=== PATIENT | male | born 1945 | race Caucasian/White ===

== ENCOUNTER 2021-06-22 11:12 | Emergency (ER) | payer MEDICARE ==
[2021-06-22 11:14] VITALS: BP 200/82
[2021-06-22] MEDS ORDERED: ASPI325T43 PO (16:29)
[2021-06-22] MEDS ORDERED: SIMV20TA22 (16:40)
[2021-06-22] MEDS ORDERED: LABE20TAB (16:40)
== END 2021-06-22 18:02 | disposition home or self-care (01) ==
LOC: M ED 11:12
DX: I73.89 Other specified peripheral vascular diseases (principal); I48.91 Unspecified atrial fibrillation; I10 Essential (primary) hypertension; E78.5 Hyperlipidemia, unspecified; K21.9 Gastro-esophageal reflux disease without esophagitis

== ENCOUNTER → 2021-06-24 | Outpatient (CLI) | payer MEDICARE ==
[~2021-06-24] MED LIST: ASPI325T43 PO; ISOVUE-370 76% 100ML VIAL As Ordered ONE; LABE20TAB; SIMV20TA22
== END ==
LOC: M RAD 09:13 → EDUNIT# 09:30
PROVIDERS: ATTEND Internal Medicine Cardiovascular Disease
DX: I70.213 Atherosclerosis of native arteries of extremities with intermittent claudication, bilateral legs (principal); M25.571 Pain in right ankle and joints of right foot; M25.572 Pain in left ankle and joints of left foot
CPT/HCPCS: 75635; Q9967

== ENCOUNTER 2021-08-24 12:49 | Emergency (ER) | payer MEDICARE ==
[~2021-08-24] VITALS: Ht 180.3 cm; Wt 97.7 kg
[~2021-08-24 12:49] MED LIST changes: -ISOVUE-370 76% 100ML VIAL As Ordered ONE; -SIMV20TA22; +SIMV20TA22 PO
[2021-08-24 13:53] LABS: BASO % 0.3 % (0.0-1.0); EOS % 0.1 % (0.0-3.0); HEMATOCRIT 45.3 % (42.0-52.0); HEMOGLOBIN 15.5 g/dl (13.5-17.5); LYMPH # 1.2 10^3/uL (1.5-5.0); LYMPH % 8.2 % (24.0-44.0); MEAN CORPUSCULAR HEMOGLOBIN 30.9 pg (27.0-33.0); MEAN CORPUSCULAR HGB CONC 34.2 g/dl (32.0-36.5); MEAN CORPUSCULAR VOLUME 90.4 fl (80.0-96.0); MONO # 0.9 10^3/uL (0.0-0.8); MONO % 6.6 % (2.0-8.0); NEUTROPHILS % 84.2 % (36.0-66.0); PLATELET COUNT, AUTOMATED 289 10^3/uL (150-450); RED BLOOD COUNT 5.01 10^6/uL (4.30-6.10); WHITE BLOOD COUNT 14.2 10^3/uL (4.0-10.0)
[2021-08-24 14:29] LABS: ALBUMIN 3.7 GM/DL (3.2-5.2); ALT/SGPT 83 U/L (12-78); BILIRUBIN,DIRECT 0.3 MG/DL (0.0-0.2); BILIRUBIN,TOTAL 1.1 MG/DL (0.2-1.0); BLOOD UREA NITROGEN 32 MG/DL (7-18); CALCIUM LEVEL 9.5 MG/DL (8.8-10.2); CARBON DIOXIDE LEVEL 28 MEQ/L (21-32); CHLORIDE LEVEL 104 MEQ/L (98-107); CREATININE FOR GFR 1.15 MG/DL (0.70-1.30); GLOMERULAR FILTRATION RATE > 60.0 (>42); GLUCOSE, FASTING 98 MG/DL (70-100); POTASSIUM SERUM 4.3 MEQ/L (3.5-5.1); SODIUM LEVEL 139 MEQ/L (136-145); TOTAL PROTEIN 6.6 GM/DL (6.4-8.2)
[2021-08-24] MEDS: NS 1,000 ML IV SCH ×2 (14:29→21:05)
[2021-08-24] MEDS ORDERED: ISOVUE-370 76% 100ML VIAL As Ordered ONE (14:56)
[2021-08-24] MEDS ORDERED: NITROGLYCERIN 0.4 MG SUBL TABLET SL PRN (17:30)
[2021-08-24] MEDS ORDERED: ASPIRIN 81 MG CHEW TABLET PO ONE (17:30)
[2021-08-24] MEDS ORDERED: NAPR220C14 PO (17:36)
[2021-08-24] MEDS ORDERED: VALS1TAB67 PO (17:36)
[2021-08-24] MEDS ORDERED: HOME MED LIST COMPLETE! XX SCH (17:40)
[2021-08-24 18:26] LABS: RSV AMPLIFICATION NEGATIVE (NEGATIVE)
[2021-08-24] MEDS ORDERED: MAALOX 30 ML SUSP *UDC PO ONE (20:25)
[2021-08-24] MEDS ORDERED: GI COCKTAIL 50ML BTL(HYOSCYAMINE/MAALOX/LIDOCAINE VISCOUS)(1:3:1) PO ONE (21:40)
[2021-08-24 23:45] VITALS: BP 169/78
[2021-08-25] MEDS ORDERED: NORV5TAB PO (00:58)
[2021-08-25] MEDS ORDERED: OMEP40CA4 PO (00:58)
== END 2021-08-25 01:18 | disposition home or self-care (01) ==
LOC: M ED 12:49
DX: K21.9 Gastro-esophageal reflux disease without esophagitis (principal); R07.9 Chest pain, unspecified; I70.0 Atherosclerosis of aorta; R94.31 Abnormal electrocardiogram [ECG] [EKG]; R93.2 Abnormal findings on diagnostic imaging of liver and biliary tract; E78.5 Hyperlipidemia, unspecified; I10 Essential (primary) hypertension
CPT/HCPCS: 71045; 71275; 74175; 80048; 80076; 84484; 85025; 87631; 93005; 93306; 94760; 99285; Q9967

== ENCOUNTER 2021-09-09 17:37 | Inpatient (IN) | payer MEDICARE ==
[~2021-09-09] VITALS: Ht 180.3 cm; Wt 90.5 kg
[~2021-09-09 17:37] MED LIST changes: +NAPR220C14 PO; +NORV5TAB PO; +OMEP40CA4 PO; +VALS1TAB67 PO
[2021-09-09] MEDS ORDERED: GABA-1171 (17:57)
[2021-09-09] MEDS ORDERED: PANT40TA29 (17:57)
[2021-09-09] MEDS ORDERED: NS 500 ML IV ONE (18:10)
[2021-09-09 18:24] LABS: VENOUS BASE EXCESS -3.1 (-2.0-2.0); VENOUS HCO3 21.7 MEQ/L (23.0-27.0); VENOUS O2 SATURATION 93.9 % (60.0-80.0); VENOUS PARTIAL PRESSURE CO2 37.6 mmHg (38.0-50.0); VENOUS PARTIAL PRESSURE O2 76.8 mmHg (30.0-50.0); VENOUS PH 7.379 UNITS (7.330-7.430); VENOUS STANDARD HCO3 21.8 MEQ/L; VENOUS TOTAL CO2 22.8 MEQ/L (24.0-28.0)
[2021-09-09 18:33] LABS: BASO % 0.4 % (0.0-1.0); EOS # 0.1 10^3/uL (0.0-0.5); EOS % 0.9 % (0.0-3.0); HEMATOCRIT 24.9 % (42.0-52.0); LYMPH # 1.3 10^3/uL (1.5-5.0); LYMPH % 12.9 % (24.0-44.0); MEAN CORPUSCULAR HEMOGLOBIN 30.9 pg (27.0-33.0); MEAN CORPUSCULAR HGB CONC 32.1 g/dl (32.0-36.5); MEAN CORPUSCULAR VOLUME 96.1 fl (80.0-96.0); MONO # 0.9 10^3/uL (0.0-0.8); MONO % 8.7 % (2.0-8.0); NEUTROPHILS % 76.4 % (36.0-66.0); PLATELET COUNT, AUTOMATED 516 10^3/uL (150-450); RED BLOOD COUNT 2.59 10^6/uL (4.30-6.10); WHITE BLOOD COUNT 10.4 10^3/uL (4.0-10.0)
[2021-09-09 18:56] LABS: OSMOLALITY SERUM 288 MOSM/KG (280-301)
[2021-09-09 19:06] LABS: CK-MB VALUE MASS 3.4 NG/ML (<3.6); MB/CK RELATIVE INDEX 2.64 (< OR =4)
[2021-09-09 19:12] LABS: ALBUMIN 2.7 GM/DL (3.2-5.2); ALT/SGPT 45 U/L (12-78); BILIRUBIN,DIRECT < 0.1 MG/DL (0.0-0.2); BILIRUBIN,TOTAL 0.6 MG/DL (0.2-1.0); BLOOD UREA NITROGEN 10 MG/DL (7-18); CALCIUM LEVEL 8.5 MG/DL (8.8-10.2); CARBON DIOXIDE LEVEL 27 MEQ/L (21-32); CHLORIDE LEVEL 109 MEQ/L (98-107); CREATININE FOR GFR 0.85 MG/DL (0.70-1.30); ETHYL ALCOHOL (ETHANOL) < 0.003 % (0.000-0.010); GLOMERULAR FILTRATION RATE > 60.0 (>42); GLUCOSE, FASTING 75 MG/DL (70-100); POTASSIUM SERUM 5.2 MEQ/L (3.5-5.1); SODIUM LEVEL 139 MEQ/L (136-145); TOTAL PROTEIN 5.7 GM/DL (6.4-8.2)
[2021-09-09 19:21] LABS: RSV AMPLIFICATION NEGATIVE (NEGATIVE)
[2021-09-09] MEDS ORDERED: LIDOCAINE 2% 5ML JELLY UROJET TOP ONE (20:25)
[2021-09-09 21:20] LABS: AMPHETAMINES LEVEL URINE NEGATIVE (NEGATIVE); BARBITURATES URINE NEGATIVE (NEGATIVE); BENZODIAZEPINES URINE NEGATIVE (NEGATIVE); CANNABINOIDS URINE NEGATIVE (NEGATIVE); COCAINE METABOLITE URINE NEGATIVE (NEGATIVE); METHADONE URINE NEGATIVE (NEGATIVE); OPIATES URINE NEGATIVE (NEGATIVE); PHENCYCLIDINE URINE NEGATIVE (NEGATIVE)
[2021-09-09] MEDS ORDERED: DEXTROSE 50% 50 ML SYRINGE IV PRN (21:45)
[2021-09-09] MEDS ORDERED: GLUCAGON INJ 1MG VIAL SC PRN (21:45)
[2021-09-09] MEDS ORDERED: GLUCOSE 4GM CHEW TABLET PO PRN (21:45)
[2021-09-09] MEDS ORDERED: PANT40TA29 PO (22:44)
[2021-09-09] MEDS ORDERED: NAPR-1010 PO (22:44)
[2021-09-09] MEDS ORDERED: GABA-1171 PO (22:44)
[2021-09-09] MEDS ORDERED: AMLO1TAB24 PO (22:44)
[2021-09-09 22:45] LABS: FERRITIN 178 NG/ML (26-388); FOLATE 22.2 NG/ML; IRON (FE) 50 UG/DL (65-175); PERCENT SATURATION 21.3 % (19.7-50.0); TOTAL IRON BINDING CAPACITY 235 UG/DL (250-450); VITAMIN B12 LEVEL 630 PG/ML
[2021-09-09] MEDS ORDERED: HOME MED LIST COMPLETE! XX SCH (22:50)
[2021-09-10] MEDS ORDERED: SIMVASTATIN 20 MG TAB PO SCH (09:00)
[2021-09-10] MEDS: FERROUS SULFATE 300MG/5ML UDC LIQUID PO SCH (09:00)
[2021-09-10] MEDS ORDERED: VALSARTAN 80 MG TAB (DIOVAN) PO SCH (09:00)
[2021-09-10] MEDS ORDERED: amLODIPine 5 MG TAB PO SCH (09:00)
[2021-09-10] MEDS: PANTOPRAZOLE 40MG TAB (PROTONIX) PO SCH ×2 (11:17→20:05)
[2021-09-10] MEDS ORDERED: ASPIRIN 81MG ENTERIC TABLET PO ONE (11:45)
[2021-09-10] MEDS ORDERED: ROSUVASTATIN 10 MG TAB (CRESTOR) PO ONE (11:45)
[2021-09-10 13:00] LABS: CHOLESTEROL RISK RATIO 3.666 (<5)
[2021-09-10 13:03] LABS: D-DIMER QUANT 3903.2 ng/ml (<500)
[2021-09-10] MEDS: SUCRALFATE 1 GM TAB PO SCH ×3 (13:37→20:05)
[2021-09-10] MEDS: ENOXAPARIN 40MG/0.4ML SYRINGE (J1650 PER 10MG) SC SCH (17:23)
[2021-09-10 17:51] VITALS: BP 127/56
[2021-09-10 18:22] VITALS: O2SAT 99
[2021-09-10 21:45] VITALS: BP 138/65
[2021-09-10 22:39] VITALS: O2SAT 93
[2021-09-11 02:00] VITALS: BP 112/76
[2021-09-11 06:34] VITALS: BP 144/82
[2021-09-11 06:37] LABS: ALBUMIN 2.4 GM/DL (3.2-5.2); ALT/SGPT 32 U/L (12-78); BILIRUBIN,DIRECT 0.2 MG/DL (0.0-0.2); BILIRUBIN,TOTAL 0.5 MG/DL (0.2-1.0); TOTAL PROTEIN 5.2 GM/DL (6.4-8.2)
[2021-09-11] MEDS ORDERED: NS 1,000 ML IV ONE (08:30)
[2021-09-11] MEDS: ENOXAPARIN 40MG/0.4ML SYRINGE (J1650 PER 10MG) SC SCH (08:51)
[2021-09-11] MEDS: FERROUS SULFATE 300MG/5ML UDC LIQUID PO SCH (08:52)
[2021-09-11] MEDS: ASPIRIN 81MG ENTERIC TABLET PO SCH (08:52)
[2021-09-11] MEDS: PANTOPRAZOLE 40MG TAB (PROTONIX) PO SCH ×2 (08:53→20:15)
[2021-09-11] MEDS: SUCRALFATE 1 GM TAB PO SCH ×4 (08:53→20:15)
[2021-09-11] MEDS: ROSUVASTATIN 10 MG TAB (CRESTOR) PO SCH (08:53)
[2021-09-11] MEDS ORDERED: FLUBLOK(EGG FREE)(QUAD)INFLUENZA VACC 0.5ML SYRINGE 18YRS & OLDER IM ONE (09:00)
[2021-09-11 09:05] LABS: HEMATOCRIT 27.8 % (42.0-52.0); HEMOGLOBIN 8.9 g/dl (13.5-17.5)
[2021-09-11 09:15] LABS: BLOOD UREA NITROGEN 6 MG/DL (7-18); CALCIUM LEVEL 8.7 MG/DL (8.8-10.2); CARBON DIOXIDE LEVEL 25 MEQ/L (21-32); CHLORIDE LEVEL 114 MEQ/L (98-107); CREATININE FOR GFR 0.62 MG/DL (0.70-1.30); GLOMERULAR FILTRATION RATE > 60.0 (>42); GLUCOSE, FASTING 89 MG/DL (70-100); POTASSIUM SERUM 3.6 MEQ/L (3.5-5.1); SODIUM LEVEL 145 MEQ/L (136-145)
[2021-09-11 10:00] VITALS: BP 156/52
[2021-09-11 15:10] VITALS: BP 164/60
[2021-09-11 18:00] VITALS: BP 163/61
[2021-09-11 20:13] VITALS: BP 141/66
[2021-09-12 00:05] VITALS: BP 137/86
[2021-09-12] MEDS: RAMELTEON 8 MG TAB (ROZEREM) PO PRN ×2 (00:33→23:44)
[2021-09-12] MEDS: ACETAMINOPHEN TAB 650MG DOSE (2X325MG) PO PRN (00:33)
[2021-09-12 06:08] VITALS: BP 147/86
[2021-09-12] MEDS ORDERED: ASPI-551 PO (08:20)
[2021-09-12] MEDS ORDERED: CRES10TA PO (08:20)
[2021-09-12] MEDS ORDERED: SUCR1TA PO (08:20)
[2021-09-12] MEDS: PANTOPRAZOLE 40MG TAB (PROTONIX) PO SCH ×2 (08:33→20:27)
[2021-09-12] MEDS: ROSUVASTATIN 10 MG TAB (CRESTOR) PO SCH (08:33)
[2021-09-12] MEDS: ASPIRIN 81MG ENTERIC TABLET PO SCH (08:33)
[2021-09-12] MEDS: SUCRALFATE 1 GM TAB PO SCH ×4 (08:33→20:27)
[2021-09-12] MEDS: FERROUS SULFATE 300MG/5ML UDC LIQUID PO SCH (08:33)
[2021-09-12] MEDS: ENOXAPARIN 40MG/0.4ML SYRINGE (J1650 PER 10MG) SC SCH (08:34)
[2021-09-12] MEDS: amLODIPine 5 MG TAB PO SCH (08:35)
[2021-09-12] MEDS ORDERED: CLOPIDOGREL 75 MG TAB PO SCH (09:00)
[2021-09-12] MEDS ORDERED: MOM 30ML SUSPENSION UDC PO PRN (09:05)
[2021-09-12] MEDS ORDERED: MOM 30ML SUSPENSION UDC PO ONE (09:05)
[2021-09-12] MEDS: SENOKOT S TAB PO SCH ×2 (09:20→20:27)
[2021-09-12] MEDS ORDERED: PLAV1TAB2 PO (10:43)
[2021-09-12 12:36] LABS: DRVV SCREEN 44.8 SEC
[2021-09-12 13:09] LABS: PTT LUPUS TYPE ANTICOAG SCREEN 1.2 (0-1.2)
[2021-09-12 13:16] LABS: DRVV CONFIRM 40.5 SEC; LUPUS CONFIRM RATIO 1.1
[2021-09-12 13:18] LABS: NORMALIZED RATIO 1.09 (0.00-1.20)
[2021-09-12 14:00] VITALS: BP 123/41
[2021-09-12 19:04] VITALS: BP 122/61
[2021-09-12 21:47] VITALS: BP 140/54
[2021-09-12 22:04] VITALS: BP 140/54
[2021-09-13] VITALS (11 sets, daily range): BP systolic 128–158; BP diastolic 48–65
[2021-09-13 07:43] LABS: HEMATOCRIT 22.8 % (42.0-52.0); HEMOGLOBIN 7.2 g/dl (13.5-17.5)
[2021-09-13] MEDS ORDERED: lisinopriL 5 MG TAB PO SCH (09:00)
[2021-09-13 09:33] LABS: PERCENT SATURATION 14.3 % (19.7-50.0)
[2021-09-13] MEDS: SENOKOT S TAB PO SCH ×2 (09:36→20:03)
[2021-09-13] MEDS: FERROUS SULFATE 300MG/5ML UDC LIQUID PO SCH (09:36)
[2021-09-13] MEDS: ASPIRIN 81MG ENTERIC TABLET PO SCH (09:36)
[2021-09-13] MEDS: SUCRALFATE 1 GM TAB PO SCH ×4 (09:36→20:02)
[2021-09-13] MEDS: PANTOPRAZOLE 40MG TAB (PROTONIX) PO SCH ×2 (09:37→20:02)
[2021-09-13] MEDS: amLODIPine 5 MG TAB PO SCH (09:38)
[2021-09-13] MEDS: ROSUVASTATIN 10 MG TAB (CRESTOR) PO SCH (09:38)
[2021-09-13 10:51] LABS: HEMOGLOBIN 7.5 g/dl (13.5-17.5)
[2021-09-13] MEDS ORDERED: amLODIPine 5 MG TAB PO ONE (11:15)
[2021-09-13] MEDS: ACETAMINOPHEN TAB 650MG DOSE (2X325MG) PO PRN ×2 (12:18→20:02)
[2021-09-13] MEDS: ASCORBIC ACID 500 MG TAB PO SCH (12:18)
[2021-09-13] MEDS: RAMELTEON 8 MG TAB (ROZEREM) PO PRN (20:02)
[2021-09-14 05:20] VITALS: BP 140/61
[2021-09-14 07:04] LABS: HEMATOCRIT 29.4 % (42.0-52.0)
[2021-09-14 07:05] LABS: HEMOGLOBIN 9.6 g/dl (13.5-17.5)
[2021-09-14 07:16] LABS: BLOOD UREA NITROGEN 8 MG/DL (7-18); CALCIUM LEVEL 8.6 MG/DL (8.8-10.2); CARBON DIOXIDE LEVEL 26 MEQ/L (21-32); CHLORIDE LEVEL 112 MEQ/L (98-107); CREATININE FOR GFR 0.59 MG/DL (0.70-1.30); GLOMERULAR FILTRATION RATE > 60.0 (>42); GLUCOSE, FASTING 77 MG/DL (70-100); SODIUM LEVEL 145 MEQ/L (136-145)
[2021-09-14] MEDS: SENOKOT S TAB PO SCH ×2 (08:27→20:03)
[2021-09-14] MEDS: ROSUVASTATIN 10 MG TAB (CRESTOR) PO SCH (08:28)
[2021-09-14] MEDS: PANTOPRAZOLE 40MG TAB (PROTONIX) PO SCH ×2 (08:28→20:02)
[2021-09-14] MEDS: SUCRALFATE 1 GM TAB PO SCH ×4 (08:28→20:03)
[2021-09-14] MEDS: ASPIRIN 81MG ENTERIC TABLET PO SCH (08:28)
[2021-09-14] MEDS: FERROUS SULFATE 300MG/5ML UDC LIQUID PO SCH (08:28)
[2021-09-14] MEDS: ACETAMINOPHEN TAB 650MG DOSE (2X325MG) PO PRN ×2 (08:28→20:07)
[2021-09-14] MEDS: ASCORBIC ACID 500 MG TAB PO SCH (08:28)
[2021-09-14] MEDS: RAMELTEON 8 MG TAB (ROZEREM) PO PRN (20:03)
[2021-09-15 06:00] VITALS: BP 148/66
[2021-09-15 06:52] LABS: HEMATOCRIT 32.9 % (42.0-52.0); HEMOGLOBIN 10.3 g/dl (13.5-17.5)
[2021-09-15] MEDS: SENOKOT S TAB PO SCH ×2 (08:56→20:28)
[2021-09-15] MEDS: FERROUS SULFATE 300MG/5ML UDC LIQUID PO SCH (08:56)
[2021-09-15] MEDS: ASCORBIC ACID 500 MG TAB PO SCH (08:56)
[2021-09-15] MEDS: ASPIRIN 81MG ENTERIC TABLET PO SCH (08:56)
[2021-09-15] MEDS: SUCRALFATE 1 GM TAB PO SCH ×4 (08:56→20:29)
[2021-09-15] MEDS: ROSUVASTATIN 10 MG TAB (CRESTOR) PO SCH (08:57)
[2021-09-15] MEDS: PANTOPRAZOLE 40MG TAB (PROTONIX) PO SCH ×2 (08:57→20:29)
[2021-09-15] MEDS: ACETAMINOPHEN TAB 650MG DOSE (2X325MG) PO PRN ×2 (08:57→20:29)
[2021-09-15] MEDS: RAMELTEON 8 MG TAB (ROZEREM) PO PRN (20:28)
[2021-09-16 05:54] VITALS: BP_SYST 143; BP_SYST 157; BP_DIAS 71; BP_DIAS 72
[2021-09-16] MEDS: SUCRALFATE 1 GM TAB PO SCH ×4 (08:12→21:33)
[2021-09-16] MEDS: ROSUVASTATIN 10 MG TAB (CRESTOR) PO SCH (08:12)
[2021-09-16] MEDS: FERROUS SULFATE 300MG/5ML UDC LIQUID PO SCH (08:12)
[2021-09-16] MEDS: ASPIRIN 81MG ENTERIC TABLET PO SCH (08:12)
[2021-09-16] MEDS: PANTOPRAZOLE 40MG TAB (PROTONIX) PO SCH ×2 (08:12→21:33)
[2021-09-16] MEDS: SENOKOT S TAB PO SCH ×2 (08:12→21:33)
[2021-09-16] MEDS: ASCORBIC ACID 500 MG TAB PO SCH (08:12)
[2021-09-16] MEDS: RAMELTEON 8 MG TAB (ROZEREM) PO PRN (21:33)
[2021-09-16] MEDS: ACETAMINOPHEN TAB 650MG DOSE (2X325MG) PO PRN (21:34)
[2021-09-17] MEDS: LIDOCAINE 5% (LIDODERM) PATCH TD PRN ×2 (01:38→20:56)
[2021-09-17] MEDS: ACETAMINOPHEN TAB 650MG DOSE (2X325MG) PO PRN ×2 (01:39→20:56)
[2021-09-17 05:35] VITALS: BP 120/56
[2021-09-17 06:09] LABS: HEMOGLOBIN 9.5 g/dl (13.5-17.5)
[2021-09-17] MEDS: FERROUS SULFATE 300MG/5ML UDC LIQUID PO SCH (09:17)
[2021-09-17] MEDS: SUCRALFATE 1 GM TAB PO SCH ×4 (09:17→20:55)
[2021-09-17] MEDS: ASPIRIN 81MG ENTERIC TABLET PO SCH (09:17)
[2021-09-17] MEDS: PANTOPRAZOLE 40MG TAB (PROTONIX) PO SCH ×2 (09:17→20:55)
[2021-09-17] MEDS: SENOKOT S TAB PO SCH ×2 (09:17→20:55)
[2021-09-17] MEDS: ASCORBIC ACID 500 MG TAB PO SCH (09:17)
[2021-09-17] MEDS: ROSUVASTATIN 10 MG TAB (CRESTOR) PO SCH (09:18)
[2021-09-17] MEDS: **NOTE PATIENT COMMENT** MISC XX SCH ×2 (09:23→20:48)
[2021-09-17] MEDS: RAMELTEON 8 MG TAB (ROZEREM) PO PRN (20:56)
[2021-09-18 06:00] VITALS: BP 111/50
[2021-09-18] MEDS: SENOKOT S TAB PO SCH ×2 (08:06→22:20)
[2021-09-18] MEDS: ASPIRIN 81MG ENTERIC TABLET PO SCH (08:06)
[2021-09-18] MEDS: ASCORBIC ACID 500 MG TAB PO SCH (08:06)
[2021-09-18] MEDS: ROSUVASTATIN 10 MG TAB (CRESTOR) PO SCH (08:06)
[2021-09-18] MEDS: SUCRALFATE 1 GM TAB PO SCH ×4 (08:06→22:20)
[2021-09-18] MEDS: FERROUS SULFATE 300MG/5ML UDC LIQUID PO SCH (08:06)
[2021-09-18] MEDS: PANTOPRAZOLE 40MG TAB (PROTONIX) PO SCH ×2 (08:06→22:20)
[2021-09-18] MEDS: **NOTE PATIENT COMMENT** MISC XX SCH ×2 (08:06→22:21)
[2021-09-18 13:08] LABS: ANTI THROMBIN 3 ANTIGEN IMMUNO 68 % (72-124); ANTI THROMBIN 3 FUNCT ACTIVITY 85 % (75-135)
[2021-09-18] MEDS: LIDOCAINE 5% (LIDODERM) PATCH TD PRN (22:21)
[2021-09-18] MEDS: RAMELTEON 8 MG TAB (ROZEREM) PO PRN (22:21)
[2021-09-18] MEDS: ACETAMINOPHEN TAB 650MG DOSE (2X325MG) PO PRN (22:22)
[2021-09-19 06:00] VITALS: BP 119/52
[2021-09-19 06:33] LABS: HEMATOCRIT 30.6 % (42.0-52.0); HEMOGLOBIN 9.7 g/dl (13.5-17.5)
[2021-09-19] MEDS: FERROUS SULFATE 300MG/5ML UDC LIQUID PO SCH (09:05)
[2021-09-19] MEDS: SENOKOT S TAB PO SCH ×2 (09:06→20:18)
[2021-09-19] MEDS: ASPIRIN 81MG ENTERIC TABLET PO SCH (09:06)
[2021-09-19] MEDS: PANTOPRAZOLE 40MG TAB (PROTONIX) PO SCH ×2 (09:06→20:18)
[2021-09-19] MEDS: ROSUVASTATIN 10 MG TAB (CRESTOR) PO SCH (09:06)
[2021-09-19] MEDS: SUCRALFATE 1 GM TAB PO SCH ×4 (09:06→20:18)
[2021-09-19] MEDS: ASCORBIC ACID 500 MG TAB PO SCH (09:06)
[2021-09-19] MEDS: **NOTE PATIENT COMMENT** MISC XX SCH ×2 (09:09→21:44)
[2021-09-19] MEDS: RAMELTEON 8 MG TAB (ROZEREM) PO PRN (20:18)
[2021-09-19] MEDS: LIDOCAINE 5% (LIDODERM) PATCH TD PRN (20:19)
[2021-09-19] MEDS: ACETAMINOPHEN TAB 650MG DOSE (2X325MG) PO PRN (20:20)
[2021-09-20 06:00] VITALS: BP 141/75
[2021-09-20] MEDS: SENOKOT S TAB PO SCH ×2 (09:50→21:44)
[2021-09-20] MEDS: ASCORBIC ACID 500 MG TAB PO SCH (09:50)
[2021-09-20] MEDS: FERROUS SULFATE 300MG/5ML UDC LIQUID PO SCH (09:50)
[2021-09-20] MEDS: PANTOPRAZOLE 40MG TAB (PROTONIX) PO SCH ×2 (09:50→21:44)
[2021-09-20] MEDS: ROSUVASTATIN 10 MG TAB (CRESTOR) PO SCH (09:50)
[2021-09-20] MEDS: ASPIRIN 81MG ENTERIC TABLET PO SCH (09:50)
[2021-09-20] MEDS: SUCRALFATE 1 GM TAB PO SCH ×4 (09:54→21:44)
[2021-09-20] MEDS: **NOTE PATIENT COMMENT** MISC XX SCH ×2 (09:54→21:00)
[2021-09-20] MEDS: RAMELTEON 8 MG TAB (ROZEREM) PO PRN (21:44)
[2021-09-20] MEDS: LIDOCAINE 5% (LIDODERM) PATCH TD PRN (21:44)
[2021-09-20] MEDS: ACETAMINOPHEN TAB 650MG DOSE (2X325MG) PO PRN (21:45)
[2021-09-21 05:39] VITALS: BP 132/68
[2021-09-21 07:19] LABS: HEMATOCRIT 33.1 % (42.0-52.0); HEMOGLOBIN 10.6 g/dl (13.5-17.5)
[2021-09-21] MEDS: ROSUVASTATIN 10 MG TAB (CRESTOR) PO SCH (08:35)
[2021-09-21] MEDS: ASCORBIC ACID 500 MG TAB PO SCH (08:35)
[2021-09-21] MEDS: FERROUS SULFATE 300MG/5ML UDC LIQUID PO SCH (08:35)
[2021-09-21] MEDS: ASPIRIN 81MG ENTERIC TABLET PO SCH (08:36)
[2021-09-21] MEDS: SUCRALFATE 1 GM TAB PO SCH ×4 (08:36→21:14)
[2021-09-21] MEDS: PANTOPRAZOLE 40MG TAB (PROTONIX) PO SCH ×2 (08:36→21:14)
[2021-09-21] MEDS: SENOKOT S TAB PO SCH ×2 (08:36→21:15)
[2021-09-21] MEDS: **NOTE PATIENT COMMENT** MISC XX SCH ×2 (08:37→21:00)
[2021-09-21] MEDS: LIDOCAINE 5% (LIDODERM) PATCH TD PRN (21:15)
[2021-09-21] MEDS: RAMELTEON 8 MG TAB (ROZEREM) PO PRN (21:15)
[2021-09-21] MEDS: ACETAMINOPHEN TAB 650MG DOSE (2X325MG) PO PRN (21:16)
[2021-09-22 06:00] VITALS: BP 139/71
[2021-09-22] MEDS: FERROUS SULFATE 300MG/5ML UDC LIQUID PO SCH (08:15)
[2021-09-22] MEDS: SUCRALFATE 1 GM TAB PO SCH ×4 (08:15→21:28)
[2021-09-22] MEDS: ASPIRIN 81MG ENTERIC TABLET PO SCH (08:15)
[2021-09-22] MEDS: PANTOPRAZOLE 40MG TAB (PROTONIX) PO SCH ×2 (08:15→21:28)
[2021-09-22] MEDS: ASCORBIC ACID 500 MG TAB PO SCH (08:16)
[2021-09-22] MEDS: ROSUVASTATIN 10 MG TAB (CRESTOR) PO SCH (08:16)
[2021-09-22] MEDS: **NOTE PATIENT COMMENT** MISC XX SCH ×2 (08:16→21:00)
[2021-09-22] MEDS: SENOKOT S TAB PO SCH ×2 (08:16→21:28)
[2021-09-22 18:13] LABS: HEMOGLOBIN 11.7 g/dl (13.5-17.5); MEAN CORPUSCULAR HEMOGLOBIN 30.8 pg (27.0-33.0); MEAN CORPUSCULAR HGB CONC 32.5 g/dl (32.0-36.5); MEAN CORPUSCULAR VOLUME 94.7 fl (80.0-96.0); PLATELET COUNT, AUTOMATED 403 10^3/uL (150-450); WHITE BLOOD COUNT 8.3 10^3/uL (4.0-10.0)
[2021-09-22 18:29] LABS: BLOOD UREA NITROGEN 19 MG/DL (7-18); CALCIUM LEVEL 9.3 MG/DL (8.8-10.2); CARBON DIOXIDE LEVEL 27 MEQ/L (21-32); CHLORIDE LEVEL 110 MEQ/L (98-107); CREATININE FOR GFR 0.76 MG/DL (0.70-1.30); GLOMERULAR FILTRATION RATE > 60.0 (>42); GLUCOSE, FASTING 115 MG/DL (70-100); POTASSIUM SERUM 3.8 MEQ/L (3.5-5.1); SODIUM LEVEL 141 MEQ/L (136-145)
[2021-09-22] MEDS: LIDOCAINE 5% (LIDODERM) PATCH TD PRN (21:28)
[2021-09-22] MEDS: RAMELTEON 8 MG TAB (ROZEREM) PO PRN (21:28)
[2021-09-22] MEDS: ACETAMINOPHEN TAB 650MG DOSE (2X325MG) PO PRN (21:29)
[2021-09-23 06:08] VITALS: BP 122/67
[2021-09-23 07:16] LABS: HEMATOCRIT 34.2 % (42.0-52.0); HEMOGLOBIN 11.1 g/dl (13.5-17.5)
[2021-09-23] MEDS ORDERED: ISOVUE-370 76% 100ML VIAL As Ordered ONE (07:52)
[2021-09-23] MEDS: ASPIRIN 81MG ENTERIC TABLET PO SCH (08:57)
[2021-09-23] MEDS: SENOKOT S TAB PO SCH ×2 (08:57→20:01)
[2021-09-23] MEDS: ROSUVASTATIN 10 MG TAB (CRESTOR) PO SCH (08:58)
[2021-09-23] MEDS: FERROUS SULFATE 300MG/5ML UDC LIQUID PO SCH (08:58)
[2021-09-23] MEDS: SUCRALFATE 1 GM TAB PO SCH ×4 (08:58→20:01)
[2021-09-23] MEDS: **NOTE PATIENT COMMENT** MISC XX SCH ×2 (08:58→21:10)
[2021-09-23] MEDS: ASCORBIC ACID 500 MG TAB PO SCH (08:58)
[2021-09-23] MEDS: PANTOPRAZOLE 40MG TAB (PROTONIX) PO SCH ×2 (08:58→20:01)
[2021-09-24 06:00] VITALS: BP 141/63
[2021-09-24] MEDS: FERROUS SULFATE 300MG/5ML UDC LIQUID PO SCH (08:28)
[2021-09-24] MEDS: SENOKOT S TAB PO SCH ×2 (08:29→20:23)
[2021-09-24] MEDS: ASCORBIC ACID 500 MG TAB PO SCH (08:30)
[2021-09-24] MEDS: ROSUVASTATIN 10 MG TAB (CRESTOR) PO SCH (08:30)
[2021-09-24] MEDS: PANTOPRAZOLE 40MG TAB (PROTONIX) PO SCH ×2 (08:30→20:23)
[2021-09-24] MEDS: ASPIRIN 81MG ENTERIC TABLET PO SCH (08:30)
[2021-09-24] MEDS: SUCRALFATE 1 GM TAB PO SCH ×4 (08:30→20:23)
[2021-09-24] MEDS: ACETAMINOPHEN TAB 650MG DOSE (2X325MG) PO PRN ×2 (08:31→20:25)
[2021-09-24] MEDS: **NOTE PATIENT COMMENT** MISC XX SCH ×2 (08:33→20:47)
[2021-09-24] MEDS: RAMELTEON 8 MG TAB (ROZEREM) PO PRN (20:24)
[2021-09-25 06:00] VITALS: BP 135/66
[2021-09-25 06:41] LABS: HEMATOCRIT 33.4 % (42.0-52.0); HEMOGLOBIN 10.9 g/dl (13.5-17.5)
[2021-09-25] MEDS: SUCRALFATE 1 GM TAB PO SCH ×4 (07:45→20:04)
[2021-09-25 08:00] VITALS: BP 146/60
[2021-09-25] MEDS: **NOTE PATIENT COMMENT** MISC XX SCH ×2 (09:00→21:07)
[2021-09-25] MEDS: SENOKOT S TAB PO SCH ×2 (10:04→20:04)
[2021-09-25] MEDS: PANTOPRAZOLE 40MG TAB (PROTONIX) PO SCH ×2 (10:04→20:04)
[2021-09-25] MEDS: ASCORBIC ACID 500 MG TAB PO SCH (10:04)
[2021-09-25] MEDS: ROSUVASTATIN 10 MG TAB (CRESTOR) PO SCH (10:04)
[2021-09-25] MEDS: ASPIRIN 81MG ENTERIC TABLET PO SCH (10:04)
[2021-09-25] MEDS: FERROUS SULFATE 300MG/5ML UDC LIQUID PO SCH (10:05)
[2021-09-25] MEDS: LIDOCAINE 5% (LIDODERM) PATCH TD PRN (20:03)
[2021-09-25] MEDS: RAMELTEON 8 MG TAB (ROZEREM) PO PRN (20:04)
[2021-09-25] MEDS: ACETAMINOPHEN TAB 650MG DOSE (2X325MG) PO PRN (20:04)
[2021-09-26 06:00] VITALS: BP 137/60
[2021-09-26] MEDS: FERROUS SULFATE 300MG/5ML UDC LIQUID PO SCH (07:57)
[2021-09-26] MEDS: SUCRALFATE 1 GM TAB PO SCH ×4 (07:57→20:01)
[2021-09-26] MEDS: ASPIRIN 81MG ENTERIC TABLET PO SCH (07:57)
[2021-09-26] MEDS: PANTOPRAZOLE 40MG TAB (PROTONIX) PO SCH ×2 (07:57→20:03)
[2021-09-26] MEDS: ROSUVASTATIN 10 MG TAB (CRESTOR) PO SCH (07:57)
[2021-09-26] MEDS: SENOKOT S TAB PO SCH ×2 (07:57→20:03)
[2021-09-26] MEDS: ASCORBIC ACID 500 MG TAB PO SCH (07:57)
[2021-09-26] MEDS: **NOTE PATIENT COMMENT** MISC XX SCH ×2 (07:58→21:00)
[2021-09-26] MEDS: ACETAMINOPHEN TAB 650MG DOSE (2X325MG) PO PRN (20:02)
[2021-09-26] MEDS: RAMELTEON 8 MG TAB (ROZEREM) PO PRN (20:03)
[2021-09-26] MEDS: LIDOCAINE 5% (LIDODERM) PATCH TD PRN (20:04)
[2021-09-27 05:19] VITALS: BP 134/53
[2021-09-27 07:08] LABS: HEMATOCRIT 34.5 % (42.0-52.0); HEMOGLOBIN 10.9 g/dl (13.5-17.5)
[2021-09-27] MEDS: ROSUVASTATIN 10 MG TAB (CRESTOR) PO SCH (08:41)
[2021-09-27] MEDS: SUCRALFATE 1 GM TAB PO SCH ×4 (08:41→20:01)
[2021-09-27] MEDS: ASCORBIC ACID 500 MG TAB PO SCH (08:41)
[2021-09-27] MEDS: FERROUS SULFATE 300MG/5ML UDC LIQUID PO SCH (08:42)
[2021-09-27] MEDS: PANTOPRAZOLE 40MG TAB (PROTONIX) PO SCH ×2 (08:42→20:01)
[2021-09-27] MEDS: ASPIRIN 81MG ENTERIC TABLET PO SCH (08:42)
[2021-09-27] MEDS: **NOTE PATIENT COMMENT** MISC XX SCH ×2 (08:42→19:19)
[2021-09-27] MEDS: SENOKOT S TAB PO SCH ×2 (08:42→20:01)
[2021-09-27] MEDS: RAMELTEON 8 MG TAB (ROZEREM) PO PRN (20:01)
[2021-09-27] MEDS: ACETAMINOPHEN TAB 650MG DOSE (2X325MG) PO PRN (20:01)
[2021-09-27] MEDS: LIDOCAINE 5% (LIDODERM) PATCH TD PRN (20:02)
[2021-09-28 06:00] VITALS: BP 117/45
[2021-09-28] MEDS: SENOKOT S TAB PO SCH ×2 (08:22→20:26)
[2021-09-28] MEDS: SUCRALFATE 1 GM TAB PO SCH ×4 (08:23→20:26)
[2021-09-28] MEDS: **NOTE PATIENT COMMENT** MISC XX SCH ×2 (08:23→20:24)
[2021-09-28] MEDS: ASPIRIN 81MG ENTERIC TABLET PO SCH (08:23)
[2021-09-28] MEDS: ROSUVASTATIN 10 MG TAB (CRESTOR) PO SCH (08:23)
[2021-09-28] MEDS: FERROUS SULFATE 300MG/5ML UDC LIQUID PO SCH (08:23)
[2021-09-28] MEDS: PANTOPRAZOLE 40MG TAB (PROTONIX) PO SCH ×2 (08:23→20:26)
[2021-09-28] MEDS: ASCORBIC ACID 500 MG TAB PO SCH (08:23)
[2021-09-28] MEDS: LIDOCAINE 5% (LIDODERM) PATCH TD PRN (20:26)
[2021-09-28] MEDS: RAMELTEON 8 MG TAB (ROZEREM) PO PRN (20:26)
[2021-09-28] MEDS: ACETAMINOPHEN TAB 650MG DOSE (2X325MG) PO PRN (20:27)
[2021-09-29 06:00] VITALS: BP 122/50
[2021-09-29 06:50] LABS: HEMATOCRIT 36.5 % (42.0-52.0); HEMOGLOBIN 11.5 g/dl (13.5-17.5)
[2021-09-29] MEDS: ROSUVASTATIN 10 MG TAB (CRESTOR) PO SCH (08:05)
[2021-09-29] MEDS: SENOKOT S TAB PO SCH ×2 (08:05→19:54)
[2021-09-29] MEDS: ASPIRIN 81MG ENTERIC TABLET PO SCH (08:05)
[2021-09-29] MEDS: ASCORBIC ACID 500 MG TAB PO SCH (08:05)
[2021-09-29] MEDS: FERROUS SULFATE 300MG/5ML UDC LIQUID PO SCH (08:05)
[2021-09-29] MEDS: SUCRALFATE 1 GM TAB PO SCH ×4 (08:06→19:54)
[2021-09-29] MEDS: PANTOPRAZOLE 40MG TAB (PROTONIX) PO SCH ×2 (08:06→19:55)
[2021-09-29] MEDS: **NOTE PATIENT COMMENT** MISC XX SCH ×2 (08:09→19:47)
[2021-09-29] MEDS: RAMELTEON 8 MG TAB (ROZEREM) PO PRN (19:54)
[2021-09-29] MEDS: ACETAMINOPHEN TAB 650MG DOSE (2X325MG) PO PRN (19:55)
[2021-09-29] MEDS: LIDOCAINE 5% (LIDODERM) PATCH TD PRN (19:55)
[2021-09-30 05:15] VITALS: BP 129/59
[2021-09-30] MEDS: ASPIRIN 81MG ENTERIC TABLET PO SCH (08:09)
[2021-09-30] MEDS: ASCORBIC ACID 500 MG TAB PO SCH (08:10)
[2021-09-30] MEDS: ROSUVASTATIN 10 MG TAB (CRESTOR) PO SCH (08:10)
[2021-09-30] MEDS: PANTOPRAZOLE 40MG TAB (PROTONIX) PO SCH ×2 (08:10→20:12)
[2021-09-30] MEDS: SENOKOT S TAB PO SCH ×2 (08:10→20:12)
[2021-09-30] MEDS: SUCRALFATE 1 GM TAB PO SCH ×4 (08:10→20:12)
[2021-09-30] MEDS: FERROUS SULFATE 300MG/5ML UDC LIQUID PO SCH (08:11)
[2021-09-30] MEDS: **NOTE PATIENT COMMENT** MISC XX SCH ×2 (08:13→20:20)
[2021-09-30] MEDS: RAMELTEON 8 MG TAB (ROZEREM) PO PRN (20:12)
[2021-09-30] MEDS: LIDOCAINE 5% (LIDODERM) PATCH TD PRN (20:20)
[2021-09-30] MEDS: ACETAMINOPHEN TAB 650MG DOSE (2X325MG) PO PRN (20:20)
[2021-10-01 06:13] LABS: HEMATOCRIT 35.3 % (42.0-52.0); HEMOGLOBIN 11.4 g/dl (13.5-17.5)
[2021-10-01 06:17] VITALS: BP 127/53
[2021-10-01] MEDS: ASPIRIN 81MG ENTERIC TABLET PO SCH (08:10)
[2021-10-01] MEDS: ASCORBIC ACID 500 MG TAB PO SCH (08:10)
[2021-10-01] MEDS: SUCRALFATE 1 GM TAB PO SCH ×4 (08:10→20:14)
[2021-10-01] MEDS: FERROUS SULFATE 300MG/5ML UDC LIQUID PO SCH (08:10)
[2021-10-01] MEDS: SENOKOT S TAB PO SCH ×2 (08:10→20:14)
[2021-10-01] MEDS: ROSUVASTATIN 10 MG TAB (CRESTOR) PO SCH (08:10)
[2021-10-01] MEDS: **NOTE PATIENT COMMENT** MISC XX SCH ×2 (08:11→20:18)
[2021-10-01] MEDS: PANTOPRAZOLE 40MG TAB (PROTONIX) PO SCH ×2 (08:11→20:14)
[2021-10-01] MEDS: ACETAMINOPHEN TAB 650MG DOSE (2X325MG) PO PRN (20:16)
[2021-10-01] MEDS: LIDOCAINE 5% (LIDODERM) PATCH TD PRN (20:16)
[2021-10-01] MEDS: RAMELTEON 8 MG TAB (ROZEREM) PO PRN (20:16)
[2021-10-02 06:00] VITALS: BP 127/55
[2021-10-02] MEDS: ASCORBIC ACID 500 MG TAB PO SCH (08:14)
[2021-10-02] MEDS: ASPIRIN 81MG ENTERIC TABLET PO SCH (08:14)
[2021-10-02] MEDS: ROSUVASTATIN 10 MG TAB (CRESTOR) PO SCH (08:14)
[2021-10-02] MEDS: FERROUS SULFATE 300MG/5ML UDC LIQUID PO SCH (08:14)
[2021-10-02] MEDS: SENOKOT S TAB PO SCH ×2 (08:15→20:59)
[2021-10-02] MEDS: PANTOPRAZOLE 40MG TAB (PROTONIX) PO SCH ×2 (08:15→20:59)
[2021-10-02] MEDS: SUCRALFATE 1 GM TAB PO SCH ×4 (08:15→20:59)
[2021-10-02] MEDS: **NOTE PATIENT COMMENT** MISC XX SCH ×2 (08:15→21:00)
[2021-10-02] MEDS: ACETAMINOPHEN TAB 650MG DOSE (2X325MG) PO PRN (20:59)
[2021-10-02] MEDS: RAMELTEON 8 MG TAB (ROZEREM) PO PRN (20:59)
[2021-10-02] MEDS: LIDOCAINE 5% (LIDODERM) PATCH TD PRN (21:01)
[2021-10-03 05:50] VITALS: BP 126/42
[2021-10-03 06:15] LABS: HEMATOCRIT 35.6 % (42.0-52.0); HEMOGLOBIN 11.4 g/dl (13.5-17.5)
[2021-10-03] MEDS: **NOTE PATIENT COMMENT** MISC XX SCH ×2 (08:26→21:00)
[2021-10-03] MEDS: ASPIRIN 81MG ENTERIC TABLET PO SCH (08:35)
[2021-10-03] MEDS: SENOKOT S TAB PO SCH ×2 (08:35→20:28)
[2021-10-03] MEDS: FERROUS SULFATE 300MG/5ML UDC LIQUID PO SCH (08:35)
[2021-10-03] MEDS: PANTOPRAZOLE 40MG TAB (PROTONIX) PO SCH ×2 (08:35→20:28)
[2021-10-03] MEDS: ASCORBIC ACID 500 MG TAB PO SCH (08:35)
[2021-10-03] MEDS: ROSUVASTATIN 10 MG TAB (CRESTOR) PO SCH (08:35)
[2021-10-03] MEDS: SUCRALFATE 1 GM TAB PO SCH ×4 (08:36→20:28)
[2021-10-03] MEDS: RAMELTEON 8 MG TAB (ROZEREM) PO PRN (20:37)
[2021-10-03] MEDS: LIDOCAINE 5% (LIDODERM) PATCH TD PRN (20:37)
[2021-10-03] MEDS: ACETAMINOPHEN TAB 650MG DOSE (2X325MG) PO PRN (20:38)
[2021-10-04 05:14] VITALS: BP 128/50
[2021-10-04] MEDS: SENOKOT S TAB PO SCH ×2 (08:53→21:08)
[2021-10-04] MEDS: FERROUS SULFATE 300MG/5ML UDC LIQUID PO SCH (08:53)
[2021-10-04] MEDS: PANTOPRAZOLE 40MG TAB (PROTONIX) PO SCH ×2 (08:53→21:08)
[2021-10-04] MEDS: ASPIRIN 81MG ENTERIC TABLET PO SCH (08:53)
[2021-10-04] MEDS: ROSUVASTATIN 10 MG TAB (CRESTOR) PO SCH (08:53)
[2021-10-04] MEDS: ASCORBIC ACID 500 MG TAB PO SCH (08:53)
[2021-10-04] MEDS: SUCRALFATE 1 GM TAB PO SCH ×4 (08:53→21:05)
[2021-10-04] MEDS: **NOTE PATIENT COMMENT** MISC XX SCH ×2 (08:54→21:00)
[2021-10-04] MEDS: LIDOCAINE 5% (LIDODERM) PATCH TD PRN (21:16)
[2021-10-05 06:00] VITALS: BP 117/43
[2021-10-05] MEDS: FERROUS SULFATE 300MG/5ML UDC LIQUID PO SCH (08:28)
[2021-10-05] MEDS: ROSUVASTATIN 10 MG TAB (CRESTOR) PO SCH (08:28)
[2021-10-05] MEDS: SUCRALFATE 1 GM TAB PO SCH ×4 (08:28→20:57)
[2021-10-05] MEDS: PANTOPRAZOLE 40MG TAB (PROTONIX) PO SCH ×2 (08:28→20:57)
[2021-10-05] MEDS: ASCORBIC ACID 500 MG TAB PO SCH (08:28)
[2021-10-05] MEDS: ASPIRIN 81MG ENTERIC TABLET PO SCH (08:28)
[2021-10-05] MEDS: SENOKOT S TAB PO SCH ×2 (08:31→20:56)
[2021-10-05] MEDS: **NOTE PATIENT COMMENT** MISC XX SCH ×2 (08:32→21:00)
[2021-10-05] MEDS: LIDOCAINE 5% (LIDODERM) PATCH TD PRN (21:05)
[2021-10-06] MEDS: RAMELTEON 8 MG TAB (ROZEREM) PO PRN (00:39)
[2021-10-06 06:00] VITALS: BP 133/62
[2021-10-06] MEDS: SUCRALFATE 1 GM TAB PO SCH ×4 (10:31→20:30)
[2021-10-06] MEDS: FERROUS SULFATE 300MG/5ML UDC LIQUID PO SCH (10:31)
[2021-10-06] MEDS: ASPIRIN 81MG ENTERIC TABLET PO SCH (10:31)
[2021-10-06] MEDS: ASCORBIC ACID 500 MG TAB PO SCH (10:31)
[2021-10-06] MEDS: ROSUVASTATIN 10 MG TAB (CRESTOR) PO SCH (10:31)
[2021-10-06] MEDS: PANTOPRAZOLE 40MG TAB (PROTONIX) PO SCH ×2 (10:31→20:30)
[2021-10-06] MEDS: SENOKOT S TAB PO SCH ×2 (10:32→20:31)
[2021-10-06] MEDS: **NOTE PATIENT COMMENT** MISC XX SCH ×2 (10:34→20:54)
[2021-10-06] MEDS: RAMELTEON 8 MG TAB (ROZEREM) PO SCH (20:30)
[2021-10-06] MEDS ORDERED: LIDOCAINE 5% (LIDODERM) PATCH TD SCH (21:00)
[2021-10-07 06:00] VITALS: BP 138/69
[2021-10-07] MEDS: SENOKOT S TAB PO SCH ×2 (08:56→21:11)
[2021-10-07] MEDS: ASCORBIC ACID 500 MG TAB PO SCH (08:56)
[2021-10-07] MEDS: ASPIRIN 81MG ENTERIC TABLET PO SCH (08:56)
[2021-10-07] MEDS: PANTOPRAZOLE 40MG TAB (PROTONIX) PO SCH ×2 (08:56→21:11)
[2021-10-07] MEDS: SUCRALFATE 1 GM TAB PO SCH ×4 (08:56→21:11)
[2021-10-07] MEDS: FERROUS SULFATE 300MG/5ML UDC LIQUID PO SCH (08:56)
[2021-10-07] MEDS: ROSUVASTATIN 10 MG TAB (CRESTOR) PO SCH (08:56)
[2021-10-07] MEDS: **NOTE PATIENT COMMENT** MISC XX SCH (08:57)
[2021-10-07] MEDS: RAMELTEON 8 MG TAB (ROZEREM) PO SCH (21:11)
[2021-10-07] MEDS: LIDOCAINE 5% (LIDODERM) PATCH TD SCH (21:12)
[2021-10-08 06:00] VITALS: BP 134/67
[2021-10-08] MEDS: ASCORBIC ACID 500 MG TAB PO SCH (08:16)
[2021-10-08] MEDS: ROSUVASTATIN 10 MG TAB (CRESTOR) PO SCH (08:16)
[2021-10-08] MEDS: SENOKOT S TAB PO SCH ×2 (08:16→20:28)
[2021-10-08] MEDS: FERROUS SULFATE 300MG/5ML UDC LIQUID PO SCH (08:16)
[2021-10-08] MEDS: SUCRALFATE 1 GM TAB PO SCH ×4 (08:16→20:27)
[2021-10-08] MEDS: ASPIRIN 81MG ENTERIC TABLET PO SCH (08:16)
[2021-10-08] MEDS: PANTOPRAZOLE 40MG TAB (PROTONIX) PO SCH ×2 (08:16→20:28)
[2021-10-08] MEDS: **NOTE PATIENT COMMENT** MISC XX SCH (08:18)
[2021-10-08] MEDS: LIDOCAINE 5% (LIDODERM) PATCH TD SCH (20:26)
[2021-10-08] MEDS: RAMELTEON 8 MG TAB (ROZEREM) PO SCH (20:28)
[2021-10-08 20:30] VITALS: BP 135/72
[2021-10-08] MEDS: ACETAMINOPHEN TAB 650MG DOSE (2X325MG) PO PRN (20:31)
[2021-10-09] MEDS ORDERED: traZODone 25MG PER 1/2 TABLET PO ONE (00:45)
[2021-10-09 06:31] VITALS: BP 119/53
[2021-10-09] MEDS: ASCORBIC ACID 500 MG TAB PO SCH (08:56)
[2021-10-09] MEDS: SUCRALFATE 1 GM TAB PO SCH ×4 (08:56→20:58)
[2021-10-09] MEDS: FERROUS SULFATE 300MG/5ML UDC LIQUID PO SCH (08:56)
[2021-10-09] MEDS: SENOKOT S TAB PO SCH ×2 (08:56→20:58)
[2021-10-09] MEDS: ASPIRIN 81MG ENTERIC TABLET PO SCH (08:56)
[2021-10-09] MEDS: ROSUVASTATIN 10 MG TAB (CRESTOR) PO SCH (08:56)
[2021-10-09] MEDS: PANTOPRAZOLE 40MG TAB (PROTONIX) PO SCH ×2 (08:57→20:58)
[2021-10-09] MEDS: **NOTE PATIENT COMMENT** MISC XX SCH (09:32)
[2021-10-09] MEDS: RAMELTEON 8 MG TAB (ROZEREM) PO SCH (20:58)
[2021-10-09] MEDS: ACETAMINOPHEN TAB 650MG DOSE (2X325MG) PO PRN (20:59)
[2021-10-09] MEDS: LIDOCAINE 5% (LIDODERM) PATCH TD SCH (21:00)
[2021-10-10 06:00] VITALS: BP 106/50
[2021-10-10] MEDS: ROSUVASTATIN 10 MG TAB (CRESTOR) PO SCH (08:10)
[2021-10-10] MEDS: ASPIRIN 81MG ENTERIC TABLET PO SCH (08:10)
[2021-10-10] MEDS: SENOKOT S TAB PO SCH ×2 (08:10→20:42)
[2021-10-10] MEDS: FERROUS SULFATE 300MG/5ML UDC LIQUID PO SCH (08:10)
[2021-10-10] MEDS: ASCORBIC ACID 500 MG TAB PO SCH (08:10)
[2021-10-10] MEDS: PANTOPRAZOLE 40MG TAB (PROTONIX) PO SCH ×2 (08:11→20:42)
[2021-10-10] MEDS: SUCRALFATE 1 GM TAB PO SCH ×4 (08:11→20:42)
[2021-10-10] MEDS: **NOTE PATIENT COMMENT** MISC XX SCH (08:11)
[2021-10-10] MEDS: LIDOCAINE 5% (LIDODERM) PATCH TD SCH (20:35)
[2021-10-10] MEDS: RAMELTEON 8 MG TAB (ROZEREM) PO SCH (20:35)
[2021-10-11 06:53] VITALS: BP_SYST 118; BP_SYST 126; BP_DIAS 68; BP_DIAS 71
[2021-10-11] MEDS: SUCRALFATE 1 GM TAB PO SCH ×4 (08:23→20:51)
[2021-10-11] MEDS: FERROUS SULFATE 300MG/5ML UDC LIQUID PO SCH (08:23)
[2021-10-11] MEDS: SENOKOT S TAB PO SCH ×2 (08:23→20:50)
[2021-10-11] MEDS: ASCORBIC ACID 500 MG TAB PO SCH (08:23)
[2021-10-11] MEDS: ASPIRIN 81MG ENTERIC TABLET PO SCH (08:23)
[2021-10-11] MEDS: PANTOPRAZOLE 40MG TAB (PROTONIX) PO SCH ×2 (08:23→20:50)
[2021-10-11] MEDS: ROSUVASTATIN 10 MG TAB (CRESTOR) PO SCH (08:23)
[2021-10-11] MEDS: **NOTE PATIENT COMMENT** MISC XX SCH (08:24)
[2021-10-11] MEDS: RAMELTEON 8 MG TAB (ROZEREM) PO SCH (20:50)
[2021-10-11] MEDS: LIDOCAINE 5% (LIDODERM) PATCH TD SCH (20:51)
[2021-10-12] MEDS: FERROUS SULFATE 300MG/5ML UDC LIQUID PO SCH (08:58)
[2021-10-12] MEDS: ASCORBIC ACID 500 MG TAB PO SCH (08:58)
[2021-10-12] MEDS: SENOKOT S TAB PO SCH ×2 (08:58→20:24)
[2021-10-12] MEDS: PANTOPRAZOLE 40MG TAB (PROTONIX) PO SCH ×2 (08:58→20:24)
[2021-10-12] MEDS: ROSUVASTATIN 10 MG TAB (CRESTOR) PO SCH (08:58)
[2021-10-12] MEDS: SUCRALFATE 1 GM TAB PO SCH ×4 (08:58→20:25)
[2021-10-12] MEDS: ASPIRIN 81MG ENTERIC TABLET PO SCH (08:58)
[2021-10-12] MEDS: **NOTE PATIENT COMMENT** MISC XX SCH (09:02)
[2021-10-12] MEDS ORDERED: CALCIUM CARBONATE 500 MG CHEW U/D PO PRN (18:35)
[2021-10-12] MEDS: LIDOCAINE 5% (LIDODERM) PATCH TD SCH (20:22)
[2021-10-12] MEDS: RAMELTEON 8 MG TAB (ROZEREM) PO SCH (20:25)
[2021-10-13 06:00] VITALS: BP 132/48
[2021-10-13] MEDS: ASPIRIN 81MG ENTERIC TABLET PO SCH (08:06)
[2021-10-13] MEDS: ASCORBIC ACID 500 MG TAB PO SCH (08:06)
[2021-10-13] MEDS: SUCRALFATE 1 GM TAB PO SCH ×4 (08:06→20:07)
[2021-10-13] MEDS: PANTOPRAZOLE 40MG TAB (PROTONIX) PO SCH ×2 (08:06→20:08)
[2021-10-13] MEDS: SENOKOT S TAB PO SCH ×2 (08:06→20:08)
[2021-10-13] MEDS: ROSUVASTATIN 10 MG TAB (CRESTOR) PO SCH (08:06)
[2021-10-13] MEDS: FERROUS SULFATE 300MG/5ML UDC LIQUID PO SCH (08:07)
[2021-10-13] MEDS: **NOTE PATIENT COMMENT** MISC XX SCH (08:50)
[2021-10-13] MEDS: LIDOCAINE 5% (LIDODERM) PATCH TD SCH (20:07)
[2021-10-13] MEDS: RAMELTEON 8 MG TAB (ROZEREM) PO SCH (20:10)
[2021-10-13] MEDS: ACETAMINOPHEN TAB 650MG DOSE (2X325MG) PO PRN (20:10)
[2021-10-14] MEDS: ACETAMINOPHEN TAB 650MG DOSE (2X325MG) PO PRN ×2 (03:53→22:11)
[2021-10-14 05:42] VITALS: BP 155/71
[2021-10-14] MEDS: SUCRALFATE 1 GM TAB PO SCH ×4 (09:07→22:02)
[2021-10-14] MEDS: **NOTE PATIENT COMMENT** MISC XX SCH (09:07)
[2021-10-14] MEDS: PANTOPRAZOLE 40MG TAB (PROTONIX) PO SCH ×2 (09:07→22:02)
[2021-10-14] MEDS: SENOKOT S TAB PO SCH ×2 (09:07→22:01)
[2021-10-14] MEDS: ASCORBIC ACID 500 MG TAB PO SCH (09:07)
[2021-10-14] MEDS: ROSUVASTATIN 10 MG TAB (CRESTOR) PO SCH (09:07)
[2021-10-14] MEDS: FERROUS SULFATE 300MG/5ML UDC LIQUID PO SCH (09:07)
[2021-10-14] MEDS: ASPIRIN 81MG ENTERIC TABLET PO SCH (09:07)
[2021-10-14] MEDS: RAMELTEON 8 MG TAB (ROZEREM) PO SCH (22:01)
[2021-10-14] MEDS: LIDOCAINE 5% (LIDODERM) PATCH TD SCH (22:03)
[2021-10-15 06:00] VITALS: BP 110/46
[2021-10-15] MEDS: ASPIRIN 81MG ENTERIC TABLET PO SCH (08:21)
[2021-10-15] MEDS: ROSUVASTATIN 10 MG TAB (CRESTOR) PO SCH (08:21)
[2021-10-15] MEDS: SENOKOT S TAB PO SCH ×2 (08:22→21:07)
[2021-10-15] MEDS: ASCORBIC ACID 500 MG TAB PO SCH (08:22)
[2021-10-15] MEDS: PANTOPRAZOLE 40MG TAB (PROTONIX) PO SCH ×2 (08:22→21:07)
[2021-10-15] MEDS: SUCRALFATE 1 GM TAB PO SCH ×4 (08:22→21:07)
[2021-10-15] MEDS: **NOTE PATIENT COMMENT** MISC XX SCH (08:23)
[2021-10-15] MEDS: FERROUS SULFATE 300MG/5ML UDC LIQUID PO SCH (08:23)
[2021-10-15] MEDS: RAMELTEON 8 MG TAB (ROZEREM) PO SCH (21:07)
[2021-10-15] MEDS: LIDOCAINE 5% (LIDODERM) PATCH TD SCH (21:07)
[2021-10-15] MEDS: ACETAMINOPHEN TAB 650MG DOSE (2X325MG) PO PRN (21:18)
[2021-10-16] MEDS: ACETAMINOPHEN TAB 650MG DOSE (2X325MG) PO PRN ×2 (02:44→22:00)
[2021-10-16] MEDS ORDERED: traZODone 25MG PER 1/2 TABLET PO ONE (03:00)
[2021-10-16 05:45] VITALS: BP 133/54
[2021-10-16] MEDS: FERROUS SULFATE 300MG/5ML UDC LIQUID PO SCH (08:07)
[2021-10-16] MEDS: SENOKOT S TAB PO SCH ×2 (08:07→21:40)
[2021-10-16] MEDS: PANTOPRAZOLE 40MG TAB (PROTONIX) PO SCH ×2 (08:08→21:39)
[2021-10-16] MEDS: ROSUVASTATIN 10 MG TAB (CRESTOR) PO SCH (08:08)
[2021-10-16] MEDS: ASCORBIC ACID 500 MG TAB PO SCH (08:08)
[2021-10-16] MEDS: ASPIRIN 81MG ENTERIC TABLET PO SCH (08:08)
[2021-10-16] MEDS: SUCRALFATE 1 GM TAB PO SCH ×4 (08:08→21:39)
[2021-10-16] MEDS: **NOTE PATIENT COMMENT** MISC XX SCH (08:08)
[2021-10-16] MEDS: RAMELTEON 8 MG TAB (ROZEREM) PO SCH (21:40)
[2021-10-16] MEDS: LIDOCAINE 5% (LIDODERM) PATCH TD SCH (21:45)
[2021-10-17] MEDS: traZODone 25MG PER 1/2 TABLET PO PRN (00:55)
[2021-10-17 05:26] VITALS: BP 126/68
[2021-10-17] MEDS: SUCRALFATE 1 GM TAB PO SCH ×4 (07:47→20:15)
[2021-10-17] MEDS: SENOKOT S TAB PO SCH ×2 (07:47→20:15)
[2021-10-17] MEDS: ASPIRIN 81MG ENTERIC TABLET PO SCH (07:48)
[2021-10-17] MEDS: ASCORBIC ACID 500 MG TAB PO SCH (07:48)
[2021-10-17] MEDS: PANTOPRAZOLE 40MG TAB (PROTONIX) PO SCH ×2 (07:48→20:16)
[2021-10-17] MEDS: FERROUS SULFATE 300MG/5ML UDC LIQUID PO SCH (07:48)
[2021-10-17] MEDS: ROSUVASTATIN 10 MG TAB (CRESTOR) PO SCH (07:48)
[2021-10-17] MEDS: **NOTE PATIENT COMMENT** MISC XX SCH (07:52)
[2021-10-17] MEDS: LIDOCAINE 5% (LIDODERM) PATCH TD SCH (20:15)
[2021-10-17] MEDS: ACETAMINOPHEN TAB 650MG DOSE (2X325MG) PO PRN (20:15)
[2021-10-17] MEDS: RAMELTEON 8 MG TAB (ROZEREM) PO SCH (20:16)
[2021-10-18] MEDS: traZODone 25MG PER 1/2 TABLET PO PRN (03:37)
[2021-10-18 06:05] VITALS: BP 125/57
[2021-10-18] MEDS: PANTOPRAZOLE 40MG TAB (PROTONIX) PO SCH ×2 (08:40→20:29)
[2021-10-18] MEDS: FERROUS SULFATE 300MG/5ML UDC LIQUID PO SCH (08:40)
[2021-10-18] MEDS: ROSUVASTATIN 10 MG TAB (CRESTOR) PO SCH (08:40)
[2021-10-18] MEDS: SENOKOT S TAB PO SCH ×2 (08:40→20:29)
[2021-10-18] MEDS: SUCRALFATE 1 GM TAB PO SCH ×4 (08:40→20:29)
[2021-10-18] MEDS: ASCORBIC ACID 500 MG TAB PO SCH (08:40)
[2021-10-18] MEDS: ASPIRIN 81MG ENTERIC TABLET PO SCH (08:40)
[2021-10-18] MEDS: **NOTE PATIENT COMMENT** MISC XX SCH (08:46)
[2021-10-18] MEDS: RAMELTEON 8 MG TAB (ROZEREM) PO SCH (20:28)
[2021-10-18] MEDS: LIDOCAINE 5% (LIDODERM) PATCH TD SCH (20:29)
[2021-10-18] MEDS: ACETAMINOPHEN TAB 650MG DOSE (2X325MG) PO PRN (20:30)
[2021-10-19 06:00] VITALS: BP 128/57
[2021-10-19] MEDS: FERROUS SULFATE 300MG/5ML UDC LIQUID PO SCH (08:04)
[2021-10-19] MEDS: PANTOPRAZOLE 40MG TAB (PROTONIX) PO SCH ×2 (08:04→20:05)
[2021-10-19] MEDS: SENOKOT S TAB PO SCH ×2 (08:04→20:05)
[2021-10-19] MEDS: SUCRALFATE 1 GM TAB PO SCH ×4 (08:04→20:05)
[2021-10-19] MEDS: ASCORBIC ACID 500 MG TAB PO SCH (08:04)
[2021-10-19] MEDS: ROSUVASTATIN 10 MG TAB (CRESTOR) PO SCH (08:04)
[2021-10-19] MEDS: ASPIRIN 81MG ENTERIC TABLET PO SCH (08:04)
[2021-10-19] MEDS: **NOTE PATIENT COMMENT** MISC XX SCH (08:05)
[2021-10-19 09:35] LABS: BASO # 0.1 10^3/uL (0.0-0.2); BASO % 0.8 % (0.0-1.0); EOS # 0.2 10^3/uL (0.0-0.5); HEMATOCRIT 43.3 % (42.0-52.0); LYMPH # 1.4 10^3/uL (1.5-5.0); LYMPH % 17.4 % (24.0-44.0); MEAN CORPUSCULAR HGB CONC 32.3 g/dl (32.0-36.5); MEAN CORPUSCULAR VOLUME 92.7 fl (80.0-96.0); MONO # 0.5 10^3/uL (0.0-0.8); MONO % 6.8 % (2.0-8.0); NEUTROPHILS # 5.8 10^3/uL (1.5-8.5); NEUTROPHILS % 72.6 % (36.0-66.0); PLATELET COUNT, AUTOMATED 325 10^3/uL (150-450); RED BLOOD COUNT 4.67 10^6/uL (4.30-6.10); WHITE BLOOD COUNT 7.9 10^3/uL (4.0-10.0)
[2021-10-19 10:01] LABS: ALBUMIN 3.7 GM/DL (3.2-5.2); ALT/SGPT 21 U/L (12-78); BILIRUBIN,TOTAL 0.6 MG/DL (0.2-1.0); BLOOD UREA NITROGEN 12 MG/DL (7-18); CALCIUM LEVEL 9.9 MG/DL (8.8-10.2); CARBON DIOXIDE LEVEL 26 MEQ/L (21-32); CHLORIDE LEVEL 111 MEQ/L (98-107); CREATININE FOR GFR 0.73 MG/DL (0.70-1.30); GLOMERULAR FILTRATION RATE > 60.0 (>42); GLUCOSE, FASTING 135 MG/DL (70-100); POTASSIUM SERUM 3.9 MEQ/L (3.5-5.1); SODIUM LEVEL 143 MEQ/L (136-145); TOTAL PROTEIN 6.5 GM/DL (6.4-8.2)
[2021-10-19] MEDS: RAMELTEON 8 MG TAB (ROZEREM) PO SCH (20:05)
[2021-10-19] MEDS: LIDOCAINE 5% (LIDODERM) PATCH TD SCH (20:05)
[2021-10-19] MEDS: ACETAMINOPHEN TAB 650MG DOSE (2X325MG) PO PRN (20:06)
[2021-10-20] MEDS: traZODone 25MG PER 1/2 TABLET PO PRN (00:18)
[2021-10-20 06:00] VITALS: BP 102/53
[2021-10-20] MEDS: SUCRALFATE 1 GM TAB PO SCH ×4 (08:27→20:31)
[2021-10-20] MEDS: SENOKOT S TAB PO SCH ×2 (08:27→20:31)
[2021-10-20] MEDS: ASPIRIN 81MG ENTERIC TABLET PO SCH (08:27)
[2021-10-20] MEDS: FERROUS SULFATE 300MG/5ML UDC LIQUID PO SCH (08:27)
[2021-10-20] MEDS: PANTOPRAZOLE 40MG TAB (PROTONIX) PO SCH ×2 (08:27→20:31)
[2021-10-20] MEDS: ROSUVASTATIN 10 MG TAB (CRESTOR) PO SCH (08:27)
[2021-10-20] MEDS: ASCORBIC ACID 500 MG TAB PO SCH (08:27)
[2021-10-20] MEDS: **NOTE PATIENT COMMENT** MISC XX SCH (08:29)
[2021-10-20] MEDS: LIDOCAINE 5% (LIDODERM) PATCH TD SCH (20:31)
[2021-10-20] MEDS: RAMELTEON 8 MG TAB (ROZEREM) PO SCH (20:31)
[2021-10-20] MEDS: ACETAMINOPHEN TAB 650MG DOSE (2X325MG) PO PRN (20:32)
[2021-10-21 06:00] VITALS: BP 110/62
[2021-10-21] MEDS: ROSUVASTATIN 10 MG TAB (CRESTOR) PO SCH (08:33)
[2021-10-21] MEDS: SUCRALFATE 1 GM TAB PO SCH (08:33)
[2021-10-21 08:34] VITALS: BP 174/72
[2021-10-21] MEDS: PANTOPRAZOLE 40MG TAB (PROTONIX) PO SCH (08:34)
[2021-10-21] MEDS: SENOKOT S TAB PO SCH (08:34)
[2021-10-21] MEDS: ASPIRIN 81MG ENTERIC TABLET PO SCH (08:34)
[2021-10-21] MEDS: FERROUS SULFATE 300MG/5ML UDC LIQUID PO SCH (08:34)
[2021-10-21] MEDS: ASCORBIC ACID 500 MG TAB PO SCH (08:34)
[2021-10-21] MEDS: **NOTE PATIENT COMMENT** MISC XX SCH (08:35)
[2021-10-21] MEDS ORDERED: COLA100C5 PO (10:35)
[2021-10-21] MEDS ORDERED: FERR5MLUD PO (10:35)
[2021-10-21] MEDS ORDERED: ASCO50TA PO (10:35)
[2021-10-21] MEDS ORDERED: FERR325T3 PO (10:38)
== END 2021-10-21 12:30 | disposition home health service (06) | DRG 64 ==
LOC: M ED 17:37 → M ED INP 21:41 → ENRESERV 09-10 13:59 → M MSPAV 09-10 17:44
PROVIDERS: ADMIT Internal Medicine; ATTEND Internal Medicine Nephrology
PROC: 30233N1 Transfusion of Nonautologous Red Blood Cells into Peripheral Vein, Percutaneous Approach (ICD-10-PCS; principal; 2021-09-13)
DX: I63.59 Cerebral infarction due to unspecified occlusion or stenosis of other cerebral artery (principal); K27.4 Chronic or unspecified peptic ulcer, site unspecified, with hemorrhage; G93.41 Metabolic encephalopathy; G91.8 Other hydrocephalus; D62 Acute posthemorrhagic anemia; I10 Essential (primary) hypertension; K21.9 Gastro-esophageal reflux disease without esophagitis; E78.5 Hyperlipidemia, unspecified; R27.0 Ataxia, unspecified; I83.90 Asymptomatic varicose veins of unspecified lower extremity; G47.00 Insomnia, unspecified; M54.9 Dorsalgia, unspecified; M19.90 Unspecified osteoarthritis, unspecified site; H53.8 Other visual disturbances; I65.23 Occlusion and stenosis of bilateral carotid arteries; R53.81 Other malaise; G31.84 Mild cognitive impairment of uncertain or unknown etiology; Z79.899 Other long term (current) drug therapy

== ENCOUNTER 2023-01-21 08:05 | Day surgery (SDC) | payer MEDICARE ==
[~2023-01-21] VITALS: Ht 177.8 cm; Wt 107.0 kg
[~2023-01-21 08:05] MED LIST changes: +AMLO1TAB24 PO; +ASCO50TA PO; +ASPI-551 PO; -ASPI325T43 PO; +ASPI81TA26 PO; +BSS IRRIG/VANCO(10MG)/TOBRA(5MG)/EPINEPH(1:1000-0.5CC)500ML BAG-ORONLY IR ONE; +CEFUROXIME 1MG/0.1ML INTRACAMERAL INJ As Ordered ONE; +CLOP75TA99 PO; +COLA100C5 PO; +CRES10TA PO; +CYCLOPENTOLATE 1% OPHTH SOLN 2ML BTL OD SCH; +FERR325T3 PO; +FERR5MLUD PO; +GABA-1171; +GABA-1171 PO; +LIDOCAINE 1% SDV 5ML VIAL As Ordered ONE; +LIDOCAINE 3.5 % 1ML OPHTH TOPICAL GEL OU ONE; +NAPR-1010 PO; +OFLOXACIN 0.3 % (OCUFLOX) OPTH SOL 5ML OD ONE; +PANT40TA29; +PANT40TA29 PO; +PHENYLEPHRINE 10% OPHTH SOL 5ML OD PRN; +PHENYLEPHRINE 2.5% OPHTH SOL 2ML OD SCH; +PRESCAP PO; +SUCR1ORA PO; +SUCR1TA PO; +TROPICAMIDE 1% OPHTH SOLN 15ML OD SCH; +[UNRECOGNIZED DRUG - CODE] PO
[2023-01-21] MEDS ORDERED: MIDAZOLAM INJ 2MG/2ML VIAL As Ordered ONE (10:02)
[2023-01-21] MEDS ORDERED: fentaNYL 100 MCG/2 ML INJECTION As Ordered ONE (10:02)
[2023-01-21] MEDS ORDERED: hydrALAZINE 20MG/ML 1ML VIAL As Ordered ONE (10:56)
[2023-01-21 11:45] VITALS: BP 178/68; TEMP 97; O2SAT 99
== END 2023-01-21 11:57 | disposition home or self-care (01) ==
LOC: M SDC 08:05
PROVIDERS: ATTEND Ophthalmology
DX: H25.11 Age-related nuclear cataract, right eye (principal); I10 Essential (primary) hypertension; E78.5 Hyperlipidemia, unspecified; K21.9 Gastro-esophageal reflux disease without esophagitis; M19.90 Unspecified osteoarthritis, unspecified site; G47.30 Sleep apnea, unspecified; N40.0 Benign prostatic hyperplasia without lower urinary tract symptoms; Z79.899 Other long term (current) drug therapy; Z79.82 Long term (current) use of aspirin
CPT/HCPCS: 66984; J0360; J0697; J2250; J3010; V2632

== ENCOUNTER 2023-03-18 11:31 | Day surgery (SDC) | payer MEDICARE ==
[~2023-03-18] VITALS: Ht 177.8 cm; Wt 108.6 kg
[~2023-03-18 11:31] MED LIST changes: -CYCLOPENTOLATE 1% OPHTH SOLN 2ML BTL OD SCH; +CYCLOPENTOLATE 1% OPHTH SOLN 2ML BTL OS SCH; -OFLOXACIN 0.3 % (OCUFLOX) OPTH SOL 5ML OD ONE; +OFLOXACIN 0.3 % (OCUFLOX) OPTH SOL 5ML OS ONE; -PHENYLEPHRINE 10% OPHTH SOL 5ML OD PRN; +PHENYLEPHRINE 10% OPHTH SOL 5ML OS PRN; -PHENYLEPHRINE 2.5% OPHTH SOL 2ML OD SCH; +PHENYLEPHRINE 2.5% OPHTH SOL 2ML OS SCH; -TROPICAMIDE 1% OPHTH SOLN 15ML OD SCH; +TROPICAMIDE 1% OPHTH SOLN 15ML OS SCH
[2023-03-18] MEDS ORDERED: fentaNYL 100 MCG/2 ML INJECTION As Ordered ONE (12:22)
[2023-03-18] MEDS ORDERED: MIDAZOLAM INJ 2MG/2ML VIAL As Ordered ONE (12:22)
[2023-03-18 14:23] VITALS: BP 159/81; TEMP 97.2; O2SAT 97
== END 2023-03-18 14:23 | disposition home or self-care (01) ==
LOC: M SDC 11:31
PROVIDERS: ATTEND Ophthalmology
DX: H25.12 Age-related nuclear cataract, left eye (principal); G47.30 Sleep apnea, unspecified; Z98.41 Cataract extraction status, right eye; I10 Essential (primary) hypertension; Z86.73 Personal history of transient ischemic attack (TIA), and cerebral infarction without residual deficits; Z79.899 Other long term (current) drug therapy
CPT/HCPCS: 66984; J0697; J2250; J3010; V2632

== ENCOUNTER 2023-08-12 12:56 | Inpatient (IN) | payer MEDICARE ==
[~2023-08-12] VITALS: Ht 177.8 cm; Wt 101.1 kg
[~2023-08-12 12:56] MED LIST changes: -BSS IRRIG/VANCO(10MG)/TOBRA(5MG)/EPINEPH(1:1000-0.5CC)500ML BAG-ORONLY IR ONE; -CEFUROXIME 1MG/0.1ML INTRACAMERAL INJ As Ordered ONE; -CYCLOPENTOLATE 1% OPHTH SOLN 2ML BTL OS SCH; -LIDOCAINE 1% SDV 5ML VIAL As Ordered ONE; -LIDOCAINE 3.5 % 1ML OPHTH TOPICAL GEL OU ONE; -OFLOXACIN 0.3 % (OCUFLOX) OPTH SOL 5ML OS ONE; -PHENYLEPHRINE 10% OPHTH SOL 5ML OS PRN; -PHENYLEPHRINE 2.5% OPHTH SOL 2ML OS SCH; -TROPICAMIDE 1% OPHTH SOLN 15ML OS SCH
[2023-08-12] MEDS ORDERED: LABE20TAB PO (13:14)
[2023-08-12] MEDS ORDERED: HYDR25TA87 PO (13:14)
[2023-08-12] MEDS: ACETAMINOPHEN TAB 650MG DOSE (2X325MG) PO ONE (13:55)
[2023-08-12] MEDS ORDERED: PANT-23 PO (13:56)
[2023-08-12 15:35] LABS: BASO % 0.2 % (0.0-1.0); EOS % 0.1 % (0.0-3.0); HEMATOCRIT 43.2 % (42.0-52.0); HEMOGLOBIN 14.8 g/dl (13.5-17.5); LYMPH # 0.4 10^3/uL (1.5-5.0); LYMPH % 2.2 % (24.0-44.0); MEAN CORPUSCULAR HEMOGLOBIN 31.6 pg (27.0-33.0); MEAN CORPUSCULAR HGB CONC 34.3 g/dl (32.0-36.5); MEAN CORPUSCULAR VOLUME 92.1 fl (80.0-96.0); MONO # 1.1 10^3/uL (0.0-0.8); MONO % 6.5 % (2.0-8.0); NEUTROPHILS # 15.2 10^3/uL (1.5-8.5); NEUTROPHILS % 90.3 % (36.0-66.0); PLATELET COUNT, AUTOMATED 235 10^3/uL (150-450); RED BLOOD COUNT 4.69 10^6/uL (4.30-6.10); WHITE BLOOD COUNT 16.8 10^3/uL (4.0-10.0)
[2023-08-12 15:59] LABS: ALKALINE PHOSPHATASE 51 U/L (46-116); ALT/SGPT 92 U/L (7.0-40); AST/SGOT 66 U/L (<34); BILIRUBIN,DIRECT 0.8 MG/DL (<0.4); BILIRUBIN,TOTAL 1.9 MG/DL (0.3-1.2); BLOOD UREA NITROGEN 15 MG/DL (9-23); CALCIUM LEVEL 9.5 MG/DL (8.3-10.6); CARBON DIOXIDE LEVEL 25 MMOL/L (20-31); CHLORIDE LEVEL 108 MMOL/L (98-107); GLOMERULAR FILTRATION RATE > 60.0 (>42); GLUCOSE, FASTING 80 MG/DL (74-106); POTASSIUM SERUM 3.7 MMOL/L (3.5-5.1); SODIUM LEVEL 143 MMOL/L (136-145); TOTAL PROTEIN 6.5 G/DL (5.7-8.2)
[2023-08-12] MEDS: PIPERACILLIN/TAZOBACTAM SOD 4.5 GM in D5W MINI-BAG PLUS 50 ML IV ONE (20:54)
[2023-08-12] MEDS: NS 1,000 ML IV ONE (20:55)
[2023-08-12] MEDS ORDERED: ROSUVASTATIN 10 MG TAB (CRESTOR) PO SCH (21:00)
[2023-08-12] MEDS ORDERED: **hydrALAZINE HCL** 25 MG TAB PO SCH (21:00)
[2023-08-12] MEDS: LABETALOL 200 MG TAB PO SCH (21:00)
[2023-08-12] MEDS ORDERED: amLODIPine 5 MG TAB PO SCH (21:00)
[2023-08-12] MEDS ORDERED: SUCR1TAB56 PO (21:35)
[2023-08-12] MEDS ORDERED: PANT40TA29 PO (21:35)
[2023-08-12] MEDS ORDERED: ROSU20TA61 PO (21:37)
[2023-08-12] MEDS ORDERED: MULTTAB86 PO (21:38)
[2023-08-12] MEDS ORDERED: AMLO1TAB24 PO (21:38)
[2023-08-12] MEDS ORDERED: HOME MED LIST COMPLETE! XX SCH (21:40)
[2023-08-12] MEDS ORDERED: GLUCOSE 4GM CHEW TABLET PO PRN (22:10)
[2023-08-12] MEDS ORDERED: GLUCAGON INJ 1MG VIAL SC PRN (22:10)
[2023-08-12] MEDS ORDERED: DEXTROSE 50% 50ML SYRINGE IV PRN (22:10)
[2023-08-12] MEDS ORDERED: DOCUSATE SODIUM 100MG CAPSULE PO PRN (22:20)
[2023-08-12] MEDS ORDERED: HYDROMORPHONE HCL 0.5 MG/ 0.5 ML SYRINGE IV PRN (22:50)
[2023-08-13] VITALS (22 sets, daily range): BP systolic 149–206; BP diastolic 65–94; TEMP 97.2–98.9; O2SAT 94–99
[2023-08-13 00:08] LABS: LIPASE 36 U/L (12-53)
[2023-08-13] MEDS: RAMELTEON 8 MG TAB (ROZEREM) PO ONE (01:36)
[2023-08-13] MEDS: LR 1,000 ML IV SCH ×2 (01:37→18:13)
[2023-08-13] MEDS: PIPERACILLIN/TAZOBACTAM SOD 4.5 GM in D5W MINI-BAG PLUS 50 ML IV SCH (03:41)
[2023-08-13 05:21] LABS: HEMATOCRIT 41.4 % (42.0-52.0); HEMOGLOBIN 13.8 g/dl (13.5-17.5); MEAN CORPUSCULAR HEMOGLOBIN 31.5 pg (27.0-33.0); MEAN CORPUSCULAR HGB CONC 33.3 g/dl (32.0-36.5); MEAN CORPUSCULAR VOLUME 94.5 fl (80.0-96.0); PLATELET COUNT, AUTOMATED 218 10^3/uL (150-450); RED BLOOD COUNT 4.38 10^6/uL (4.30-6.10); WHITE BLOOD COUNT 17.3 10^3/uL (4.0-10.0)
[2023-08-13 05:44] LABS: ALBUMIN 3.3 G/DL (3.2-5.2); ALKALINE PHOSPHATASE 44 U/L (46-116); ALT/SGPT 74 U/L (7.0-40); AST/SGOT 36 U/L (<34); BILIRUBIN,TOTAL 2.1 MG/DL (0.3-1.2); BLOOD UREA NITROGEN 13 MG/DL (9-23); CALCIUM LEVEL 8.7 MG/DL (8.3-10.6); CARBON DIOXIDE LEVEL 27 MMOL/L (20-31); CHLORIDE LEVEL 111 MMOL/L (98-107); CREATININE FOR GFR 0.82 MG/DL (0.70-1.30); GLOMERULAR FILTRATION RATE > 60.0 (>42); GLUCOSE, FASTING 103 MG/DL (74-106); POTASSIUM SERUM 4.1 MMOL/L (3.5-5.1); SODIUM LEVEL 144 MMOL/L (136-145); TOTAL PROTEIN 5.7 G/DL (5.7-8.2)
[2023-08-13] MEDS ORDERED: PANTOPRAZOLE 40MG TAB (PROTONIX) PO SCH (09:00)
[2023-08-13] MEDS: PANTOPRAZOLE 40MG VIAL IV SCH (10:10)
[2023-08-13] MEDS: **hydrALAZINE HCL** 25 MG TAB PO SCH (15:00)
[2023-08-13] MEDS ORDERED: LIDOCAINE 2% 100MG/5ML SDV (FOR ANES.) As Ordered ONE (15:40)
[2023-08-13] MEDS ORDERED: ONDANSETRON 4MG 2ML VIAL As Ordered ONE (15:40)
[2023-08-13] MEDS ORDERED: ROCURONIUM BROMIDE 50MG/5ML VIAL As Ordered ONE (15:40)
[2023-08-13] MEDS ORDERED: fentaNYL 100 MCG/2 ML INJECTION As Ordered ONE (15:40)
[2023-08-13] MEDS ORDERED: propofoL 200 MG/20 ML VIAL As Ordered ONE (15:40)
[2023-08-13] MEDS ORDERED: ISOVUE-300 61% 100ML VIAL As Ordered ONE (16:06)
[2023-08-13] MEDS ORDERED: LABETALOL 100MG/20ML VIAL As Ordered ONE (16:50)
[2023-08-13] MEDS ORDERED: SUGAMMADEX SODIUM 500 MG/5 ML VIAL (BRIDION) As Ordered ONE (16:57)
[2023-08-13] MEDS ORDERED: ESMOLOL INJ 100MG/10ML VIAL As Ordered ONE (16:59)
[2023-08-13] MEDS ORDERED: fentaNYL 100 MCG/2 ML INJECTION IV PRN (17:05)
[2023-08-13] MEDS ORDERED: oxyCODONE 5MG TAB PO PRN (17:05)
[2023-08-13] MEDS ORDERED: ONDANSETRON 4MG 2ML VIAL IV PRN (17:05)
[2023-08-13] MEDS ORDERED: HYDROMORPHONE HCL 0.5 MG/ 0.5 ML SYRINGE IV PRN (17:05)
[2023-08-13] MEDS: hydrALAZINE 20MG/ML 1ML VIAL IV ONE (20:56)
[2023-08-13] MEDS: amLODIPine 5 MG TAB PO SCH (22:17)
[2023-08-14] VITALS (16 sets, daily range): BP systolic 133–221; BP diastolic 64–92; TEMP 97.6–99.2; O2SAT 96–99
[2023-08-14 05:01] LABS: BASO % 0.1 % (0.0-1.0); HEMATOCRIT 42.2 % (42.0-52.0); HEMOGLOBIN 14.1 g/dl (13.5-17.5); LYMPH # 0.5 10^3/uL (1.5-5.0); LYMPH % 4.7 % (24.0-44.0); MEAN CORPUSCULAR HEMOGLOBIN 31.3 pg (27.0-33.0); MEAN CORPUSCULAR HGB CONC 33.4 g/dl (32.0-36.5); MEAN CORPUSCULAR VOLUME 93.6 fl (80.0-96.0); MONO # 0.5 10^3/uL (0.0-0.8); MONO % 4.8 % (2.0-8.0); NEUTROPHILS # 9.5 10^3/uL (1.5-8.5); PLATELET COUNT, AUTOMATED 213 10^3/uL (150-450); RED BLOOD COUNT 4.51 10^6/uL (4.30-6.10); WHITE BLOOD COUNT 10.5 10^3/uL (4.0-10.0)
[2023-08-14 05:23] LABS: ALKALINE PHOSPHATASE 41 U/L (46-116); ALT/SGPT 56 U/L (7.0-40); AST/SGOT 20 U/L (<34); BILIRUBIN,TOTAL 1.3 MG/DL (0.3-1.2); BLOOD UREA NITROGEN 11 MG/DL (9-23); CALCIUM LEVEL 9.1 MG/DL (8.3-10.6); CARBON DIOXIDE LEVEL 26 MMOL/L (20-31); CHLORIDE LEVEL 110 MMOL/L (98-107); CREATININE FOR GFR 0.72 MG/DL (0.70-1.30); GLOMERULAR FILTRATION RATE > 60.0 (>42); GLUCOSE, FASTING 110 MG/DL (74-106); POTASSIUM SERUM 4.3 MMOL/L (3.5-5.1); SODIUM LEVEL 141 MMOL/L (136-145); TOTAL PROTEIN 5.7 G/DL (5.7-8.2)
[2023-08-14] MEDS: ROSUVASTATIN 10 MG TAB (CRESTOR) PO SCH (11:21)
[2023-08-14] MEDS ORDERED: VANCOMYCIN ORAL SOL 250MG/5ML ORAL SYRINGE PO SCH (12:00)
[2023-08-14] MEDS: ACETAMINOPHEN TAB 650MG DOSE (2X325MG) PO PRN (21:00)
[2023-08-14] MEDS ORDERED: amLODIPine 5 MG TAB PO SCH (21:00)
[2023-08-14] MEDS: HEPARIN SOD (PORCINE) 5000UNITS/ML 1ML VIAL/SYRINGE SQ SCH (21:00)
[2023-08-15] VITALS (11 sets, daily range): BP systolic 138–175; BP diastolic 61–77; TEMP 97.4–98.3; O2SAT 97–99
[2023-08-15] MEDS: RAMELTEON 8 MG TAB (ROZEREM) PO ONE (00:20)
[2023-08-15 04:25] LABS: HEMATOCRIT 41.6 % (42.0-52.0); HEMOGLOBIN 14.1 g/dl (13.5-17.5); MEAN CORPUSCULAR HEMOGLOBIN 31.5 pg (27.0-33.0); MEAN CORPUSCULAR HGB CONC 33.9 g/dl (32.0-36.5); MEAN CORPUSCULAR VOLUME 92.9 fl (80.0-96.0); PLATELET COUNT, AUTOMATED 200 10^3/uL (150-450); RED BLOOD COUNT 4.48 10^6/uL (4.30-6.10); WHITE BLOOD COUNT 11.1 10^3/uL (4.0-10.0)
[2023-08-15 04:37] LABS: BLOOD UREA NITROGEN 15 MG/DL (9-23); CALCIUM LEVEL 8.9 MG/DL (8.3-10.6); CARBON DIOXIDE LEVEL 25 MMOL/L (20-31); CHLORIDE LEVEL 113 MMOL/L (98-107); CREATININE FOR GFR 0.69 MG/DL (0.70-1.30); GLOMERULAR FILTRATION RATE > 60.0 (>42); GLUCOSE, FASTING 89 MG/DL (74-106); MAGNESIUM LEVEL 2.2 MG/DL (1.8-2.4); SODIUM LEVEL 144 MMOL/L (136-145)
[2023-08-15 08:04] LABS: ALBUMIN 3.1 G/DL (3.2-5.2); ALKALINE PHOSPHATASE 41 U/L (46-116); ALT/SGPT 49 U/L (7.0-40); AST/SGOT 20 U/L (<34); BILIRUBIN,DIRECT 0.4 MG/DL (<0.4); TOTAL PROTEIN 5.7 G/DL (5.7-8.2)
[2023-08-15] MEDS: **hydrALAZINE** 50 MG TAB PO SCH (09:10)
[2023-08-15] MEDS: LABETALOL 100MG TAB PO SCH (09:11)
[2023-08-15] MEDS ORDERED: HYDR50TA47 PO (10:48)
[2023-08-15] MEDS ORDERED: LEVO1TAB40 PO (10:48)
[2023-08-15] MEDS ORDERED: LABE100T6 PO (10:48)
== END 2023-08-15 11:25 | disposition home or self-care (01) | DRG 872 ==
LOC: M ED 12:56 → EDBD 12:56 → M ED INP 20:43 → ENRESERV 08-13 00:01 → M ICU 08-13 02:15
PROVIDERS: ADMIT Internal Medicine; ATTEND Internal Medicine
PROC: 0F798DZ Dilation of Common Bile Duct with Intraluminal Device, Via Natural or Artificial Opening Endoscopic (ICD-10-PCS; 2023-08-13)
PROC: 0FC98ZZ Extirpation of Matter from Common Bile Duct, Via Natural or Artificial Opening Endoscopic (ICD-10-PCS; principal; 2023-08-13 13:30)
DX: A41.50 Gram-negative sepsis, unspecified (principal); K80.30 Calculus of bile duct with cholangitis, unspecified, without obstruction; I10 Essential (primary) hypertension; K21.9 Gastro-esophageal reflux disease without esophagitis; E78.5 Hyperlipidemia, unspecified; E66.9 Obesity, unspecified; R93.2 Abnormal findings on diagnostic imaging of liver and biliary tract; Z86.73 Personal history of transient ischemic attack (TIA), and cerebral infarction without residual deficits; Z98.41 Cataract extraction status, right eye; Z98.42 Cataract extraction status, left eye; K76.0 Fatty (change of) liver, not elsewhere classified; Z68.32 Body mass index [BMI] 32.0-32.9, adult; Z79.899 Other long term (current) drug therapy

== ENCOUNTER 2023-11-10 10:39 | Inpatient (IN) | payer MEDICARE ==
[~2023-11-10] VITALS: Ht 180.3 cm; Wt 96.6 kg
[~2023-11-10 10:39] MED LIST changes: +CLON-412 PO; +HYDR25TA87 PO; +HYDR50TA47 PO; +LABE100T6 PO; +LABE20TAB PO; +LEVO1TAB40 PO; +MULTTAB86 PO; +PANT-23 PO; +ROSU20TA61 PO; +SUCR1TAB56 PO
[2023-11-10 12:39] LABS: BASO % 0.2 % (0.0-1.0); EOS % 0.2 % (0.0-3.0); HEMATOCRIT 44.5 % (42.0-52.0); HEMOGLOBIN 14.4 g/dl (13.5-17.5); LYMPH # 0.6 10^3/uL (1.5-5.0); LYMPH % 6.4 % (24.0-44.0); MEAN CORPUSCULAR HEMOGLOBIN 30.1 pg (27.0-33.0); MEAN CORPUSCULAR HGB CONC 32.4 g/dl (32.0-36.5); MEAN CORPUSCULAR VOLUME 92.9 fl (80.0-96.0); MONO # 0.9 10^3/uL (0.0-0.8); MONO % 10.8 % (2.0-8.0); NEUTROPHILS # 7.2 10^3/uL (1.5-8.5); NEUTROPHILS % 82.1 % (36.0-66.0); PLATELET COUNT, AUTOMATED 379 10^3/uL (150-450); RED BLOOD COUNT 4.79 10^6/uL (4.30-6.10); WHITE BLOOD COUNT 8.7 10^3/uL (4.0-10.0)
[2023-11-10 13:06] LABS: ALBUMIN 3.9 G/DL (3.2-5.2); BILIRUBIN,DIRECT 0.5 MG/DL (<0.4); BILIRUBIN,TOTAL 1.2 MG/DL (0.3-1.2)
[2023-11-10] MEDS ORDERED: ISOVUE-370 76% 100ML VIAL As Ordered ONE (13:18)
[2023-11-10 13:29] LABS: MB/CK RELATIVE INDEX 3.33 (< OR =4)
[2023-11-10] MEDS: ONDANSETRON 4MG 2ML VIAL IV ONE (13:30)
[2023-11-10] MEDS: NS 500 ML IV ONE (13:30)
[2023-11-10] MEDS ORDERED: HOME MED LIST COMPLETE! XX SCH (14:55)
[2023-11-10] MEDS: NS 1,000 ML IV SCH (15:42)
[2023-11-10] MEDS ORDERED: ACETAMINOPHEN 500 MG TAB PO PRN (16:25)
[2023-11-10] MEDS ORDERED: MORPHINE 2 MG/ML 1ML VIAL IV PRN (16:25)
[2023-11-10] MEDS: KCL 10MEQ IN D5/0.45NS 1000ML 1,000 ML IV SCH (16:25)
[2023-11-10 17:36] VITALS: BP 156/70; TEMP 97.9; O2SAT 97
[2023-11-10 20:28] VITALS: BP 158/66; TEMP 97.7; O2SAT 96
[2023-11-10] MEDS: cloNIDine HCL 0.1 MG/24 HR PATCH TOP SCH (21:50)
[2023-11-11 06:02] LABS: HEMATOCRIT 38.1 % (42.0-52.0); HEMOGLOBIN 12.5 g/dl (13.5-17.5); MEAN CORPUSCULAR HGB CONC 32.8 g/dl (32.0-36.5); MEAN CORPUSCULAR VOLUME 94.5 fl (80.0-96.0); PLATELET COUNT, AUTOMATED 313 10^3/uL (150-450); RED BLOOD COUNT 4.03 10^6/uL (4.30-6.10); WHITE BLOOD COUNT 5.3 10^3/uL (4.0-10.0)
[2023-11-11 06:23] VITALS: BP 154/57; TEMP 97.9; O2SAT 97
[2023-11-11 06:30] LABS: ALKALINE PHOSPHATASE 46 U/L (46-116); ALT/SGPT 22 U/L (7.0-40); AST/SGOT 10 U/L (<34); BLOOD UREA NITROGEN 12 MG/DL (9-23); CARBON DIOXIDE LEVEL 25 MMOL/L (20-31); CHLORIDE LEVEL 113 MMOL/L (98-107); CREATININE FOR GFR 0.65 MG/DL (0.70-1.30); GLOMERULAR FILTRATION RATE > 60.0 (>42); GLUCOSE, FASTING 121 MG/DL (74-106); SODIUM LEVEL 143 MMOL/L (136-145); TOTAL PROTEIN 5.5 G/DL (5.7-8.2)
[2023-11-11] MEDS: PANTOPRAZOLE 40MG VIAL IV SCH (09:16)
[2023-11-11] MEDS: ENOXAPARIN 40MG/0.4ML SYRINGE (J1650 PER 10MG) SC SCH (09:16)
[2023-11-11] MEDS ORDERED: PILL CUTTER 1 EACH XX PRN (09:50)
[2023-11-11] MEDS: SIMETHICONE 80MG CHEW TAB PO SCH (10:24)
[2023-11-11] MEDS: DOCUSATE SODIUM 100MG CAPSULE PO SCH (10:24)
[2023-11-11 14:13] VITALS: BP 176/73; TEMP 97.9; O2SAT 95
[2023-11-11] MEDS: cloNIDine HCL 0.2 MG/24 HR PATCH TOP SCH (17:09)
[2023-11-11] MEDS: KETOROLAC 30 MG/ML 1ML VIAL IV PRN (21:57)
[2023-11-11 22:00] VITALS: BP 162/76; TEMP 97.5; O2SAT 94
[2023-11-12 06:00] VITALS: BP 167/73; TEMP 97.5; O2SAT 94
[2023-11-12 06:09] LABS: HEMATOCRIT 39.7 % (42.0-52.0); HEMOGLOBIN 13.1 g/dl (13.5-17.5); MEAN CORPUSCULAR HEMOGLOBIN 30.8 pg (27.0-33.0); MEAN CORPUSCULAR VOLUME 93.2 fl (80.0-96.0); PLATELET COUNT, AUTOMATED 323 10^3/uL (150-450); RED BLOOD COUNT 4.26 10^6/uL (4.30-6.10); WHITE BLOOD COUNT 5.6 10^3/uL (4.0-10.0)
[2023-11-12 06:26] LABS: ALBUMIN 3.2 G/DL (3.2-5.2); ALKALINE PHOSPHATASE 48 U/L (46-116); ALT/SGPT 22 U/L (7.0-40); AST/SGOT 11 U/L (<34); BILIRUBIN,TOTAL 0.9 MG/DL (0.3-1.2); BLOOD UREA NITROGEN 5 MG/DL (9-23); CALCIUM LEVEL 9.4 MG/DL (8.3-10.6); CARBON DIOXIDE LEVEL 26 MMOL/L (20-31); CHLORIDE LEVEL 111 MMOL/L (98-107); GLOMERULAR FILTRATION RATE > 60.0 (>42); GLUCOSE, FASTING 112 MG/DL (74-106); POTASSIUM SERUM 3.9 MMOL/L (3.5-5.1); SODIUM LEVEL 145 MMOL/L (136-145); TOTAL PROTEIN 5.8 G/DL (5.7-8.2)
[2023-11-12] MEDS: BISACODYL 10MG SUPP PR ONE (09:20)
[2023-11-12] MEDS: BISACODYL 10MG SUPP PR SCH (12:59)
[2023-11-12 14:00] VITALS: BP 174/70; TEMP 97.9; O2SAT 98
[2023-11-12 20:50] VITALS: BP 162/76; TEMP 98.1; O2SAT 96
[2023-11-12] MEDS: **hydrALAZINE HCL** 25 MG TAB PO SCH (20:52)
[2023-11-12] MEDS: amLODIPine 5 MG TAB PO SCH (20:53)
[2023-11-12] MEDS: cloNIDine 0.1MG TABLET PO SCH (20:55)
[2023-11-12] MEDS: RAMELTEON 8 MG TAB (ROZEREM) PO PRN (21:08)
[2023-11-13 05:00] VITALS: BP 162/68; TEMP 97; O2SAT 94
[2023-11-13 05:50] VITALS: BP 144/66
[2023-11-13 05:57] LABS: HEMATOCRIT 38.1 % (42.0-52.0); HEMOGLOBIN 12.7 g/dl (13.5-17.5); MEAN CORPUSCULAR HEMOGLOBIN 31.1 pg (27.0-33.0); MEAN CORPUSCULAR HGB CONC 33.3 g/dl (32.0-36.5); MEAN CORPUSCULAR VOLUME 93.2 fl (80.0-96.0); PLATELET COUNT, AUTOMATED 318 10^3/uL (150-450); RED BLOOD COUNT 4.09 10^6/uL (4.30-6.10)
[2023-11-13 06:14] LABS: ALBUMIN 3.3 G/DL (3.2-5.2); ALKALINE PHOSPHATASE 47 U/L (46-116); ALT/SGPT 24 U/L (7.0-40); AST/SGOT 11 U/L (<34); BILIRUBIN,TOTAL 1.1 MG/DL (0.3-1.2); BLOOD UREA NITROGEN 6 MG/DL (9-23); CALCIUM LEVEL 9.5 MG/DL (8.3-10.6); CARBON DIOXIDE LEVEL 27 MMOL/L (20-31); CHLORIDE LEVEL 110 MMOL/L (98-107); CREATININE FOR GFR 0.64 MG/DL (0.70-1.30); GLOMERULAR FILTRATION RATE > 60.0 (>42); GLUCOSE, FASTING 114 MG/DL (74-106); POTASSIUM SERUM 3.8 MMOL/L (3.5-5.1); SODIUM LEVEL 143 MMOL/L (136-145); TOTAL PROTEIN 5.6 G/DL (5.7-8.2)
[2023-11-13 14:00] VITALS: BP_SYST 147; BP_SYST 148; BP_DIAS 59; BP_DIAS 68; TEMP 97.3; O2SAT 93; O2SAT 97
[2023-11-13 20:23] VITALS: BP 143/61; TEMP 97.7; O2SAT 97
[2023-11-14 05:45] VITALS: BP 137/60; TEMP 97.3; O2SAT 98
[2023-11-14 05:56] LABS: HEMATOCRIT 37.2 % (42.0-52.0); HEMOGLOBIN 12.2 g/dl (13.5-17.5); MEAN CORPUSCULAR HEMOGLOBIN 30.7 pg (27.0-33.0); MEAN CORPUSCULAR HGB CONC 32.8 g/dl (32.0-36.5); MEAN CORPUSCULAR VOLUME 93.7 fl (80.0-96.0); PLATELET COUNT, AUTOMATED 302 10^3/uL (150-450); RED BLOOD COUNT 3.97 10^6/uL (4.30-6.10); WHITE BLOOD COUNT 6.4 10^3/uL (4.0-10.0)
[2023-11-14 06:27] LABS: ALBUMIN 3.1 G/DL (3.2-5.2); ALKALINE PHOSPHATASE 45 U/L (46-116); ALT/SGPT 25 U/L (7.0-40); AST/SGOT 10 U/L (<34); BILIRUBIN,TOTAL 0.9 MG/DL (0.3-1.2); BLOOD UREA NITROGEN 5 MG/DL (9-23); CALCIUM LEVEL 9.6 MG/DL (8.3-10.6); CARBON DIOXIDE LEVEL 24 MMOL/L (20-31); CHLORIDE LEVEL 113 MMOL/L (98-107); CREATININE FOR GFR 0.65 MG/DL (0.70-1.30); GLOMERULAR FILTRATION RATE > 60.0 (>42); GLUCOSE, FASTING 117 MG/DL (74-106); SODIUM LEVEL 144 MMOL/L (136-145); TOTAL PROTEIN 5.5 G/DL (5.7-8.2)
[2023-11-14 14:00] VITALS: BP 139/58; TEMP 97.3; O2SAT 97
[2023-11-14 20:07] VITALS: BP 165/71; TEMP 97.9; O2SAT 97
[2023-11-15 05:18] VITALS: BP 167/70; TEMP 98.1; O2SAT 96
[2023-11-15 06:00] LABS: BASO % 0.5 % (0.0-1.0); EOS # 0.2 10^3/uL (0.0-0.5); EOS % 3.2 % (0.0-3.0); HEMATOCRIT 36.3 % (42.0-52.0); HEMOGLOBIN 11.9 g/dl (13.5-17.5); LYMPH # 1.2 10^3/uL (1.5-5.0); LYMPH % 19.3 % (24.0-44.0); MEAN CORPUSCULAR HEMOGLOBIN 30.7 pg (27.0-33.0); MEAN CORPUSCULAR HGB CONC 32.8 g/dl (32.0-36.5); MEAN CORPUSCULAR VOLUME 93.8 fl (80.0-96.0); MONO # 0.7 10^3/uL (0.0-0.8); MONO % 10.8 % (2.0-8.0); NEUTROPHILS # 4.1 10^3/uL (1.5-8.5); NEUTROPHILS % 65.6 % (36.0-66.0); PLATELET COUNT, AUTOMATED 307 10^3/uL (150-450); RED BLOOD COUNT 3.87 10^6/uL (4.30-6.10); WHITE BLOOD COUNT 6.2 10^3/uL (4.0-10.0)
[2023-11-15 06:09] LABS: C REACTIVE PROTEIN QUANTITATIV < 0.40 MG/DL (<1.0)
[2023-11-15 06:11] LABS: ALKALINE PHOSPHATASE 45 U/L (46-116); ALT/SGPT 24 U/L (7.0-40); AST/SGOT 10 U/L (<34); BILIRUBIN,TOTAL 0.7 MG/DL (0.3-1.2); BLOOD UREA NITROGEN 7 MG/DL (9-23); CARBON DIOXIDE LEVEL 25 MMOL/L (20-31); CHLORIDE LEVEL 112 MMOL/L (98-107); GLOMERULAR FILTRATION RATE > 60.0 (>42); GLUCOSE, FASTING 109 MG/DL (74-106); POTASSIUM SERUM 3.9 MMOL/L (3.5-5.1); SODIUM LEVEL 144 MMOL/L (136-145); TOTAL PROTEIN 5.3 G/DL (5.7-8.2)
[2023-11-15 14:00] VITALS: BP 146/72; TEMP 97.7; O2SAT 96
[2023-11-15] MEDS: PANTOPRAZOLE 40MG TAB (PROTONIX) PO SCH (21:26)
[2023-11-16 04:47] VITALS: BP 110/52; TEMP 97.9; O2SAT 96
[2023-11-16 05:59] LABS: HEMOGLOBIN 12.2 g/dl (13.5-17.5); MEAN CORPUSCULAR HEMOGLOBIN 30.7 pg (27.0-33.0); PLATELET COUNT, AUTOMATED 321 10^3/uL (150-450); RED BLOOD COUNT 3.98 10^6/uL (4.30-6.10); WHITE BLOOD COUNT 5.7 10^3/uL (4.0-10.0)
[2023-11-16 06:26] LABS: ALBUMIN 3.1 G/DL (3.2-5.2); ALKALINE PHOSPHATASE 45 U/L (46-116); ALT/SGPT 25 U/L (7.0-40); AST/SGOT 11 U/L (<34); BILIRUBIN,TOTAL 0.7 MG/DL (0.3-1.2); BLOOD UREA NITROGEN 9 MG/DL (9-23); CALCIUM LEVEL 9.6 MG/DL (8.3-10.6); CARBON DIOXIDE LEVEL 27 MMOL/L (20-31); CHLORIDE LEVEL 111 MMOL/L (98-107); CREATININE FOR GFR 0.69 MG/DL (0.70-1.30); GLOMERULAR FILTRATION RATE > 60.0 (>42); GLUCOSE, FASTING 90 MG/DL (74-106); POTASSIUM SERUM 3.9 MMOL/L (3.5-5.1); SODIUM LEVEL 143 MMOL/L (136-145); TOTAL PROTEIN 5.5 G/DL (5.7-8.2)
[2023-11-16] MEDS: POTASSIUM CHLORIDE 10MEQ SR TABLET PO SCH (09:58)
[2023-11-16 10:00] VITALS: BP 154/92
[2023-11-16 12:00] VITALS: BP 158/66; TEMP 98.4; O2SAT 98
[2023-11-16] MEDS ORDERED: MIRA33506 PO (17:20)
[2024-11-10] MEDS ORDERED: cloNIDine HCL 0.2 MG/24 HR PATCH TOP SCH (09:00)
== END 2023-11-16 12:56 | disposition home or self-care (01) | DRG 390 ==
LOC: M ED 10:39 → M ED INP 10:40 → OBSVTOIN 14:31 → M MSPAV 17:35
PROVIDERS: ADMIT Family Medicine; ATTEND Hospitalist
DX: K56.600 Partial intestinal obstruction, unspecified as to cause (principal); I10 Essential (primary) hypertension; K21.9 Gastro-esophageal reflux disease without esophagitis; E78.5 Hyperlipidemia, unspecified; E66.9 Obesity, unspecified; I69.318 Other symptoms and signs involving cognitive functions following cerebral infarction; M19.90 Unspecified osteoarthritis, unspecified site; K52.9 Noninfective gastroenteritis and colitis, unspecified; Z68.33 Body mass index [BMI] 33.0-33.9, adult; Z90.49 Acquired absence of other specified parts of digestive tract; Z98.890 Other specified postprocedural states; Z79.899 Other long term (current) drug therapy; Z98.41 Cataract extraction status, right eye; Z98.42 Cataract extraction status, left eye; Z87.11 Personal history of peptic ulcer disease

== ENCOUNTER 2024-07-17 19:56 | Inpatient (IN) | payer MEDICARE ==
[~2024-07-17] VITALS: Ht 182.9 cm; Wt 98.1 kg
[~2024-07-17 19:56] MED LIST changes: +MIRA33506 PO; -ROSU20TA61 PO; +ROSU20TA86 PO
[2024-07-18] MEDS: KETOROLAC 30 MG/ML 1ML VIAL IV ONE (00:27)
[2024-07-18] MEDS: ONDANSETRON 4MG 2ML VIAL IV ONE (00:27)
[2024-07-18 00:30] LABS: BASO # 0.1 10^3/uL (0.0-0.2); BASO % 0.4 % (0.0-1.0); HEMATOCRIT 44.8 % (42.0-52.0); HEMOGLOBIN 14.8 g/dl (13.5-17.5); LYMPH # 0.6 10^3/uL (1.5-5.0); LYMPH % 2.2 % (24.0-44.0); MEAN CORPUSCULAR HEMOGLOBIN 30.5 pg (27.0-33.0); MEAN CORPUSCULAR VOLUME 92.2 fl (80.0-96.0); MONO # 0.2 10^3/uL (0.0-0.8); NEUTROPHILS # 23.5 10^3/uL (1.5-8.5); NEUTROPHILS % 95.3 % (36.0-66.0); PLATELET COUNT, AUTOMATED 315 10^3/uL (150-450); RED BLOOD COUNT 4.86 10^6/uL (4.30-6.10); WHITE BLOOD COUNT 24.7 10^3/uL (4.0-10.0)
[2024-07-18 00:49] LABS: CK-MB VALUE MASS 2.1 NG/ML (<3.6); LIPASE 31 U/L (12-53)
[2024-07-18 00:51] LABS: ALBUMIN 2.9 G/DL (3.2-5.2); ALKALINE PHOSPHATASE 358 U/L (40-129); ALT/SGPT 319 U/L (7.0-40); AST/SGOT 338 U/L (<34); BILIRUBIN,DIRECT 2.6 MG/DL (<0.4); BLOOD UREA NITROGEN 20 MG/DL (9-23); CALCIUM LEVEL 8.9 MG/DL (8.3-10.6); CARBON DIOXIDE LEVEL 29 MMOL/L (20-31); CHLORIDE LEVEL 107 MMOL/L (98-107); CPK CREATINE PHOSPHOKINASE 72 U/L (46-171); CREATININE FOR GFR 0.92 MG/DL (0.70-1.30); GLOMERULAR FILTRATION RATE > 60.0 (>42); GLUCOSE, FASTING 136 MG/DL (74-106); MB/CK RELATIVE INDEX 2.91 (< OR =4); POTASSIUM SERUM 3.7 MMOL/L (3.5-5.1); SODIUM LEVEL 146 MMOL/L (136-145); TOTAL PROTEIN 6.5 G/DL (5.7-8.2)
[2024-07-18] MEDS ORDERED: ISOVUE-370 76% 100ML VIAL As Ordered ONE (01:09)
[2024-07-18 02:12] LABS: KETONE, URINE AUTO RFX NEGATIVE (NEGATIVE); LEUKOCYTE ESTERASE UR AUTO RFX NEGATIVE (NEGATIVE); MUCUS, URINE RFX SMALL (NEGATIVE); NITRITE, URINE AUTO RFX NEGATIVE (NEGATIVE); RBC, URINE AUTO RFX 0 /HPF (0-3); SQUAM EPITHELIAL CELL UR AURFX 0 /HPF (0-6); WBC, URINE AUTO RFX 1 /HPF (0-3)
[2024-07-18] MEDS: PIPERACILLIN/TAZOBACTAM SOD 3.375 GM in DEXTROSE 5% (D5W) ADV/MINI-BAG 50 ML IV ONE (02:30)
[2024-07-18 03:11] LABS: PROCALCITONIN 11.54 ng/ml
[2024-07-18] MEDS ORDERED: ONDANSETRON 4MG 2ML VIAL IV PRN ×2 (04:30→16:40)
[2024-07-18] MEDS ORDERED: KETOROLAC 30 MG/ML 1ML VIAL IV PRN ×2 (04:30)
[2024-07-18] MEDS ORDERED: MOM 30ML SUSPENSION UDC PO PRN (04:30)
[2024-07-18] MEDS ORDERED: MAALOX 30 ML SUSP *UDC PO PRN (04:30)
[2024-07-18] MEDS ORDERED: MELA5TAB47 PO (04:54)
[2024-07-18] MEDS ORDERED: MV-M1CAP8 PO (04:54)
[2024-07-18 04:55] LABS: C REACTIVE PROTEIN QUANTITATIV 10.02 MG/DL (<1.0)
[2024-07-18] MEDS ORDERED: HOME MED LIST COMPLETE! XX SCH (04:55)
[2024-07-18 05:04] LABS: ERYTHROCYTE SEDIMENTATION RATE 75 mm/hr (0-20)
[2024-07-18] MEDS: LR 1,000 ML IV SCH (05:33)
[2024-07-18 08:16] VITALS: BP 145/72; TEMP 97.2; O2SAT 96
[2024-07-18] MEDS: PANTOPRAZOLE 40MG VIAL IV SCH (09:40)
[2024-07-18] MEDS: PIPERACILLIN/TAZOBACTAM SOD 4.5 GM in DEXTROSE 5% (D5W) ADV/MINI-BAG 50 ML IV SCH (09:40)
[2024-07-18] MEDS: DOCUSATE SODIUM 100MG CAPSULE PO SCH (09:40)
[2024-07-18] MEDS: cloNIDine 0.1MG TABLET PO SCH (12:39)
[2024-07-18] MEDS ORDERED: SUGAMMADEX SODIUM 500 MG/5 ML VIAL (BRIDION) As Ordered ONE (13:09)
[2024-07-18] MEDS ORDERED: propofoL 200 MG/20 ML VIAL As Ordered ONE (13:09)
[2024-07-18] MEDS ORDERED: ROCURONIUM BROMIDE 50MG/5ML VIAL As Ordered ONE (13:09)
[2024-07-18] MEDS ORDERED: GLYCOPYRROLATE INJ 0.2 MG/ML 2 ML VIAL As Ordered ONE (13:09)
[2024-07-18] MEDS ORDERED: ONDANSETRON 4MG 2ML VIAL As Ordered ONE (13:10)
[2024-07-18] MEDS ORDERED: LIDOCAINE 2% 100MG/5ML SDV (FOR ANES.) As Ordered ONE (13:11)
[2024-07-18] MEDS ORDERED: fentaNYL 100 MCG/2 ML INJECTION As Ordered ONE (15:22)
[2024-07-18] MEDS: ISOVUE-300 61% 100ML VIAL As Ordered ONE (16:28)
[2024-07-18] MEDS ORDERED: oxyCODONE 5MG TAB PO PRN (16:40)
[2024-07-18] MEDS ORDERED: HYDROMORPHONE HCL 0.5 MG/ 0.5 ML SYRINGE IV PRN (16:40)
[2024-07-18] MEDS ORDERED: fentaNYL 100 MCG/2 ML INJECTION IV PRN (16:40)
[2024-07-18 17:45] VITALS: BP 140/90; TEMP 97; O2SAT 93
[2024-07-18 18:15] VITALS: BP 148/88; TEMP 97.3; O2SAT 95
[2024-07-18 19:15] VITALS: BP 139/76; TEMP 97.7; O2SAT 94
[2024-07-18 20:15] VITALS: BP 144/65; TEMP 97.3; O2SAT 93
[2024-07-18] MEDS: amLODIPine 5 MG TAB PO SCH (20:26)
[2024-07-18] MEDS: TAMSULOSIN 0.4 MG CAP PO SCH (20:27)
[2024-07-18 21:15] VITALS: BP 140/65; TEMP 97.3; O2SAT 95
[2024-07-18] MEDS: RAMELTEON 8 MG TAB (ROZEREM) PO PRN (23:11)
[2024-07-19] VITALS (7 sets, daily range): BP systolic 139–194; BP diastolic 61–86; TEMP 96.8–97.7; O2SAT 93–96
[2024-07-19 08:27] LABS: BASO # 0.1 10^3/uL (0.0-0.2); BASO % 0.2 % (0.0-1.0); EOS # 0.1 10^3/uL (0.0-0.5); EOS % 0.2 % (0.0-3.0); HEMATOCRIT 40.5 % (42.0-52.0); HEMOGLOBIN 13.4 g/dl (13.5-17.5); LYMPH # 1.8 10^3/uL (1.5-5.0); LYMPH % 6.3 % (24.0-44.0); MEAN CORPUSCULAR HEMOGLOBIN 30.5 pg (27.0-33.0); MEAN CORPUSCULAR HGB CONC 33.1 g/dl (32.0-36.5); MONO # 1.3 10^3/uL (0.0-0.8); MONO % 4.4 % (2.0-8.0); NEUTROPHILS # 25.6 10^3/uL (1.5-8.5); NEUTROPHILS % 87.7 % (36.0-66.0); PLATELET COUNT, AUTOMATED 296 10^3/uL (150-450); WHITE BLOOD COUNT 29.2 10^3/uL (4.0-10.0)
[2024-07-19 08:56] LABS: ALBUMIN 2.3 G/DL (3.2-5.2); ALKALINE PHOSPHATASE 230 U/L (40-129); ALT/SGPT 168 U/L (7.0-40); AST/SGOT 58 U/L (<34); BILIRUBIN,DIRECT 0.5 MG/DL (<0.4); BILIRUBIN,TOTAL 0.9 MG/DL (0.3-1.2); BLOOD UREA NITROGEN 19 MG/DL (9-23); CALCIUM LEVEL 8.8 MG/DL (8.3-10.6); CARBON DIOXIDE LEVEL 28 MMOL/L (20-31); CHLORIDE LEVEL 105 MMOL/L (98-107); CREATININE FOR GFR 0.69 MG/DL (0.70-1.30); GLOMERULAR FILTRATION RATE > 60.0 (>42); GLUCOSE, FASTING 100 MG/DL (74-106); MAGNESIUM LEVEL 2.3 MG/DL (1.8-2.4); POTASSIUM SERUM 4.1 MMOL/L (3.5-5.1); SODIUM LEVEL 143 MMOL/L (136-145); TOTAL PROTEIN 5.8 G/DL (5.7-8.2)
[2024-07-19] MEDS: SUCRALFATE 1 GM TAB PO SCH (09:00)
[2024-07-19] MEDS: VANCOMYCIN HCL 2,000 MG, VIAL MATE ADAPTER 1 EACH in NS 500 ML IV ONE (12:17)
[2024-07-19] MEDS: ENOXAPARIN 40MG/0.4ML SYRINGE (J1650 PER 10MG) SC SCH (15:11)
[2024-07-19] MEDS: MORPHINE 4 MG/ML 1ML VIAL IV PRN (20:00)
[2024-07-19] MEDS: VANCOMYCIN HCL 1,250 MG, VIAL MATE ADAPTER 1 EACH in NS 250 ML IV SCH (20:00)
[2024-07-20] VITALS (10 sets, daily range): BP systolic 154–196; BP diastolic 65–85; TEMP 96.8–98.9; O2SAT 93–96
[2024-07-20 08:06] LABS: BASO % 0.2 % (0.0-1.0); EOS # 0.2 10^3/uL (0.0-0.5); EOS % 0.9 % (0.0-3.0); HEMATOCRIT 45.1 % (42.0-52.0); HEMOGLOBIN 14.9 g/dl (13.5-17.5); LYMPH # 1.9 10^3/uL (1.5-5.0); LYMPH % 10.2 % (24.0-44.0); MEAN CORPUSCULAR HEMOGLOBIN 30.4 pg (27.0-33.0); MONO # 1.1 10^3/uL (0.0-0.8); MONO % 5.8 % (2.0-8.0); NEUTROPHILS # 15.3 10^3/uL (1.5-8.5); NEUTROPHILS % 82.1 % (36.0-66.0); PLATELET COUNT, AUTOMATED 320 10^3/uL (150-450); WHITE BLOOD COUNT 18.6 10^3/uL (4.0-10.0)
[2024-07-20 08:48] LABS: ALBUMIN 2.5 G/DL (3.2-5.2); ALKALINE PHOSPHATASE 210 U/L (40-129); ALT/SGPT 124 U/L (7.0-40); AST/SGOT 29 U/L (<34); BILIRUBIN,TOTAL 0.9 MG/DL (0.3-1.2); BLOOD UREA NITROGEN 16 MG/DL (9-23); CALCIUM LEVEL 9.1 MG/DL (8.3-10.6); CARBON DIOXIDE LEVEL 29 MMOL/L (20-31); CHLORIDE LEVEL 110 MMOL/L (98-107); CREATININE FOR GFR 0.81 MG/DL (0.70-1.30); GLOMERULAR FILTRATION RATE > 60.0 (>42); GLUCOSE, FASTING 92 MG/DL (74-106); POTASSIUM SERUM 4.4 MMOL/L (3.5-5.1); SODIUM LEVEL 146 MMOL/L (136-145); TOTAL PROTEIN 6.2 G/DL (5.7-8.2)
[2024-07-20] MEDS: amLODIPine 5 MG TAB PO SCH (16:21)
[2024-07-21 04:07] VITALS: BP 178/88; TEMP 97.2; O2SAT 96
[2024-07-21 08:14] LABS: BASO # 0.1 10^3/uL (0.0-0.2); BASO % 0.5 % (0.0-1.0); EOS # 0.1 10^3/uL (0.0-0.5); EOS % 0.7 % (0.0-3.0); HEMATOCRIT 47.3 % (42.0-52.0); HEMOGLOBIN 15.5 g/dl (13.5-17.5); LYMPH # 1.5 10^3/uL (1.5-5.0); LYMPH % 10.9 % (24.0-44.0); MEAN CORPUSCULAR HGB CONC 32.8 g/dl (32.0-36.5); MEAN CORPUSCULAR VOLUME 91.7 fl (80.0-96.0); MONO # 0.8 10^3/uL (0.0-0.8); NEUTROPHILS # 11.1 10^3/uL (1.5-8.5); NEUTROPHILS % 80.6 % (36.0-66.0); PLATELET COUNT, AUTOMATED 400 10^3/uL (150-450); RED BLOOD COUNT 5.16 10^6/uL (4.30-6.10); WHITE BLOOD COUNT 13.8 10^3/uL (4.0-10.0)
[2024-07-21 08:32] LABS: VANCOMYCIN LEVEL TROUGH 13.6 UG/ML (10.0-20.0)
[2024-07-21 08:39] LABS: ALBUMIN 2.8 G/DL (3.2-5.2); ALKALINE PHOSPHATASE 218 U/L (40-129); ALT/SGPT 112 U/L (7.0-40); AST/SGOT 36 U/L (<34); BILIRUBIN,TOTAL 1.2 MG/DL (0.3-1.2); BLOOD UREA NITROGEN 11 MG/DL (9-23); CALCIUM LEVEL 9.5 MG/DL (8.3-10.6); CARBON DIOXIDE LEVEL 30 MMOL/L (20-31); CHLORIDE LEVEL 108 MMOL/L (98-107); GLOMERULAR FILTRATION RATE > 60.0 (>42); GLUCOSE, FASTING 111 MG/DL (74-106); POTASSIUM SERUM 4.4 MMOL/L (3.5-5.1); SODIUM LEVEL 145 MMOL/L (136-145); TOTAL PROTEIN 6.8 G/DL (5.7-8.2)
[2024-07-21 08:42] VITALS: BP 146/81; TEMP 97.3; O2SAT 97
[2024-07-21 11:44] VITALS: BP 129/73; TEMP 97.3; O2SAT 96
[2024-07-21 16:13] VITALS: BP 158/76; TEMP 97.5; O2SAT 96
[2024-07-21 20:30] VITALS: BP 137/88; TEMP 96.8; O2SAT 97
[2024-07-21 23:26] VITALS: BP 186/74; TEMP 97; O2SAT 96
[2024-07-22 05:32] VITALS: BP 174/79; TEMP 97.9; O2SAT 96
[2024-07-22] MEDS ORDERED: FLOM0.4C39 PO (07:43)
[2024-07-22] MEDS ORDERED: AMLO1TAB25 PO (07:43)
[2024-07-22] MEDS ORDERED: LEVO1TAB40 PO (07:43)
[2024-07-22 07:59] VITALS: BP 165/70; O2SAT 97
[2024-07-22 08:00] VITALS: BP 159/68; TEMP 96.8
[2024-07-22 08:18] LABS: BASO # 0.1 10^3/uL (0.0-0.2); BASO % 0.7 % (0.0-1.0); EOS # 0.2 10^3/uL (0.0-0.5); EOS % 1.4 % (0.0-3.0); HEMATOCRIT 44.3 % (42.0-52.0); HEMOGLOBIN 14.6 g/dl (13.5-17.5); LYMPH # 1.9 10^3/uL (1.5-5.0); LYMPH % 16.8 % (24.0-44.0); MEAN CORPUSCULAR HEMOGLOBIN 30.3 pg (27.0-33.0); MEAN CORPUSCULAR VOLUME 91.9 fl (80.0-96.0); MONO # 0.8 10^3/uL (0.0-0.8); MONO % 7.2 % (2.0-8.0); NEUTROPHILS # 8.3 10^3/uL (1.5-8.5); NEUTROPHILS % 72.2 % (36.0-66.0); PLATELET COUNT, AUTOMATED 379 10^3/uL (150-450); RED BLOOD COUNT 4.82 10^6/uL (4.30-6.10); WHITE BLOOD COUNT 11.4 10^3/uL (4.0-10.0)
[2024-07-22 08:48] VITALS: BP 165/70
[2024-07-22 09:08] LABS: ALBUMIN 2.5 G/DL (3.2-5.2); ALKALINE PHOSPHATASE 182 U/L (40-129); ALT/SGPT 108 U/L (7.0-40); AST/SGOT 45 U/L (<34); BLOOD UREA NITROGEN 14 MG/DL (9-23); CALCIUM LEVEL 9.2 MG/DL (8.3-10.6); CARBON DIOXIDE LEVEL 29 MMOL/L (20-31); CHLORIDE LEVEL 109 MMOL/L (98-107); CREATININE FOR GFR 0.88 MG/DL (0.70-1.30); GLOMERULAR FILTRATION RATE > 60.0 (>42); GLUCOSE, FASTING 106 MG/DL (74-106); POTASSIUM SERUM 4.5 MMOL/L (3.5-5.1); SODIUM LEVEL 146 MMOL/L (136-145); TOTAL PROTEIN 6.2 G/DL (5.7-8.2)
[2024-07-22 13:08] VITALS: BP 164/68; TEMP 97.2; O2SAT 97
== END 2024-07-22 14:10 | disposition home or self-care (01) | DRG 872 ==
LOC: M ED 19:56 → EEVIPCON 07-18 04:29 → M ED INP 07-18 04:29 → M MS5PR 07-18 07:55
PROVIDERS: ADMIT Family Medicine; ATTEND Internal Medicine
PROC: 0FPB8DZ Removal of Intraluminal Device from Hepatobiliary Duct, Via Natural or Artificial Opening Endoscopic (ICD-10-PCS; 2024-07-18)
PROC: 0FC98ZZ Extirpation of Matter from Common Bile Duct, Via Natural or Artificial Opening Endoscopic (ICD-10-PCS; principal; 2024-07-18 17:00)
PROC: B246ZZZ Ultrasonography of Right and Left Heart (ICD-10-PCS; 2024-07-20)
DX: A41.02 Sepsis due to Methicillin resistant Staphylococcus aureus (principal); K83.09 Other cholangitis; T85.590A Other mechanical complication of bile duct prosthesis, initial encounter; G47.33 Obstructive sleep apnea (adult) (pediatric); I10 Essential (primary) hypertension; K21.9 Gastro-esophageal reflux disease without esophagitis; N40.1 Benign prostatic hyperplasia with lower urinary tract symptoms; E66.9 Obesity, unspecified; F01.50 Vascular dementia, unspecified severity, without behavioral disturbance, psychotic disturbance, mood disturbance, and anxiety; E78.5 Hyperlipidemia, unspecified; R33.9 Retention of urine, unspecified; M19.90 Unspecified osteoarthritis, unspecified site; Z98.41 Cataract extraction status, right eye; Z98.42 Cataract extraction status, left eye; Z90.49 Acquired absence of other specified parts of digestive tract; Z86.73 Personal history of transient ischemic attack (TIA), and cerebral infarction without residual deficits; Y83.1 Surgical operation with implant of artificial internal device as the cause of abnormal reaction of the patient, or of later complication, without mention of misadventure at the time of the procedure

== ENCOUNTER 2024-07-22 14:15 | Outpatient (CLI) | payer MEDICARE ==
[~2024-07-22] VITALS: Ht 182.9 cm; Wt 98.2 kg
[2024-07-22 14:15] VITALS: BP 159/86; O2SAT 97
[~2024-07-22 14:15] MED LIST changes: +AMLO1TAB25 PO; +FLOM0.4C39 PO; +MELA5TAB47 PO; +MV-M1CAP8 PO
[2024-07-22] MEDS: DALBAVANCIN 1,500 MG in D5W 250 ML IV ONE (15:09)
[2024-07-22 15:45] VITALS: BP 144/81; O2SAT 96
== END 2024-07-22 16:00 ==
LOC: M INFU 14:15
PROVIDERS: ATTEND Internal Medicine
DX: K83.09 Other cholangitis (principal)
CPT/HCPCS: 96365; J0875

== ENCOUNTER → 2024-08-29 | Outpatient (CLI) | payer MEDICARE | LOC: M WUC 14:14 | PROVIDERS: ATTEND Student in an Organized Health Care Education/Training Program | DX: M19.272 Secondary osteoarthritis, left ankle and foot (principal) ==